=== PATIENT | female | born 1930 | race Caucasian/White ===

== ENCOUNTER 2017-07-12 17:44 | Emergency (ER) | payer MEDICARE, BC, MEDICAID ==
--- NOTE | 2017-07-12 18:05 | EDM.PDOC ---
ED HPI GENERAL MEDICAL PROBLEM - General Chief Complaint: Genitourinary Problem Stated Complaint: MEDICAL Time Seen by Provider: 07/12/17 18:01 Source of Information: Reports: Patient, EMS, EMS Notes Reviewed, Family, Assisted Records History Limitations: Reports: No Limitations - History of Present Illness INITIAL COMMENTS - FREE TEXT/NARRATIVE: Pt to ER via EMS from [facility] with continued UTI symptoms. Family reports UTI ongoing x about 2 weeks. Pt has no complaints today, just not feeling quite like herself. Denies pain or burning, denies confusion. No new meds. Admits to not drinking water well. Had last been on Cipro in May. No antibiotic noted since that time. Also notes rash in pannus. Reports that staff does not always put the powder on her. Onset: Gradual Duration: Recurring Location: Reports: Abdomen Severity: Mild Improves with: Reports: None Worsens with: Reports: None Associated Symptoms: Reports: Malaise - Related Data Allergies Allergy/AdvReac Type Severity Reaction Status Date / Time latex Allergy Other Verified 07/12/17 17:59 rosuvastatin [From Crestor] Allergy Other Verified 07/12/17 17:59 Home Meds: Home Meds Allopurinol [Zyloprim] 1 tab PO DAILY 06/29/17 [History] Bumetanide [Bumex] 1 tab PO DAILY 06/29/17 [History] Bumetanide [Bumex] 2 mg PO DAILY 06/29/17 [History] Ferrous Sulfate 1 tab PO DAILY 06/29/17 [History] Folic Acid 1 tab PO DAILY 06/29/17 [History] Hydroxychloroquine Sulfate [Plaquenil] 1 tab PO BID 06/29/17 [History] Insulin Aspart [Novolog Flexpen] 14 units SQ TID 06/29/17 [History] Insulin Detemir [Levemir] 34 unit SQ DAILY 06/29/17 [History] Levothyroxine 1 tab PO DAILY 06/29/17 [History] Methotrexate Sodium [Trexall] 1 tab PO WEEKLY 06/29/17 [History] Metoprolol Succinate [Toprol XL] 25 mg PO DAILY 06/29/17 [History] Sennosides/Docusate Sodium [Sennosides-Docusate Sodium] 1 tab PO DAILY 06/29/17 [History] predniSONE [Prednisone] 1 tab PO DAILY 06/29/17 [History] rOPINIRole HCl [Requip] 1 tab PO DAILY 06/29/17 [History] traMADol [Ultram] 1 tab PO BID 06/29/17 [History] Past Medical History Musculoskeletal History: Reports: Other (See Below) Other Musculoskeletal History: bilateral knee pain ED ROS GENERAL - Review of Systems Review Of Systems: See Below Constitutional: Reports: Malaise, Weakness HEENT: Reports: No Symptoms Respiratory: Reports: No Symptoms Cardiovascular: Reports: No Symptoms GI/Abdominal: Reports: No Symptoms : Reports: Frequency, Incontinence Musculoskeletal: Reports: No Symptoms Skin: Reports: Rash (under her folds) Neurological: Reports: No Symptoms Psychiatric: Reports: No Symptoms ED EXAM, RENAL/ - Physical Exam Exam: See Below Exam Limited By: No Limitations General Appearance: Alert, WD/WN, No Apparent Distress Nose: Normal Inspection, Normal Mucosa, No Blood Throat/Mouth: Normal Inspection, Normal Lips, Normal Teeth, Normal Gums, Normal Oropharynx, Normal Voice, No Airway Compromise Head: Atraumatic, Normocephalic Neck: Normal Inspection, Supple, Non-Tender, Full Range of Motion Respiratory/Chest: No Respiratory Distress, Lungs Clear, Normal Breath Sounds, No Accessory Muscle Use, Chest Non-Tender Cardiovascular: Normal Peripheral Pulses, Regular Rate, Rhythm, No Edema, No Gallop, No JVD, No Murmur, No Rub Extremities: Normal Inspection, Normal Range of Motion, Non-Tender, Normal Capillary Refill, No Pedal Edema Neurological: Alert, Oriented, CN II-XII Intact, Normal Cognition, Normal Gait, Normal Reflexes, No Motor/Sensory Deficits Course - Vital Signs Last Recorded V/S: Last Vital Signs Temp 97.3 F 07/12/17 18:00 Pulse 83 07/12/17 18:00 Resp 20 07/12/17 18:00 BP 180/87 H 07/12/17 18:00 Pulse Ox 100 07/12/17 18:00 - Orders/Labs/Meds Orders: Active Orders 24 hr Category Date Time Status CULTURE URINE [RM] Stat Lab 07/12/17 18:06 Received Labs: Laboratory Tests 07/12/17 07/12/17 07/12/17 Range/Units 18:01 18:21 18:21 WBC 12.3 H (4.5-11.0) K/uL RBC 3.06 L (3.30-5.50) M/uL Hgb 9.4 L (12.0-15.0) g/dL Hct 29.4 L (36.0-48.0) % MCV 96 (80-98) fL MCH 31 (27-31) pg MCHC 32 (32-36) % Plt Count 487 H (150-400) K/uL Neut % (Auto) 86 H (36-66) % Lymph % (Auto) 8 L (24-44) % [place] % (Auto) 4 (2-6) % Eos % (Auto) 2 (2-4) % Baso % (Auto) 0 (0-1) % Sodium 136 L (140-148) mmol/L Potassium 4.4 (3.6-5.2) mmol/L Chloride 99 L (100-108) mmol/L Carbon Dioxide 29 (21-32) mmol/L Anion Gap 12.4 (5.0-14.0) mmol/L BUN 46 H (7-18) mg/dL Creatinine 1.9 H (0.6-1.0) mg/dL Est Cr Clr Drug Dosing TNP Estimated GFR (MDRD) 25 L (>60) Glucose 84 (74-106) mg/dL Calcium 9.1 (8.5-10.1) mg/dL Urine Color Yellow Urine Appearance Cloudy Urine pH 6.0 (4.5-8.0) Ur Specific [place] 1.015 (1.008-1.030) Urine Protein Negative (NEGATIVE) mg/dL Urine Glucose (UA) Normal (NEGATIVE) mg/dL Urine Ketones Negative (NEGATIVE) mg/dL Urine Occult Blood Large (NEGATIVE) Urine Nitrite Negative (NEGATIVE) Urine Bilirubin Negative (NEGATIVE) Urine Urobilinogen Normal (NORMAL) mg/dL Ur Leukocyte Esterase Large (NEGATIVE) Urine RBC 10-20 H (0-5) Urine WBC Packed H (0-5) Ur Epithelial Cells Moderate Amorphous Sediment Not seen Urine Bacteria Many Urine Mucus Not seen Meds: Medications Discontinued Medications Generic Name Dose Route Start Last Admin Trade Name Freq PRN Reason Stop Dose Admin Ceftriaxone Sodium 1 gm 07/12/17 18:14 07/12/17 18:52 Rocephin IM 07/12/17 18:15 1 gm ONETIME ONE Administration Hydromorphone HCl 1 mg 07/12/17 18:46 07/12/17 18:53 Dilaudid IM 07/12/17 18:47 1 mg ONETIME ONE Administration Lidocaine HCl Confirm 07/12/17 18:39 07/12/17 18:53 Xylocaine-Mpf 1% Administered 07/12/17 18:40 5 ml Dose Administration 5 ml .ROUTE .STK-MED ONE Departure - Departure Time of Disposition: 18:47 Disposition: Home, Self-Care 01 Condition: Fair Clinical Impression: UTI, Urinary tract infectious disease - Discharge Information Instructions: Urinary Tract Infection, Adult, [id number] Referrals: Marquise Castro MD [Primary Care Provider] - Forms: ED Department Discharge Additional Instructions: UA positive for UTI. CBC with mildly elevated WBC's. Rocephin 1gm IM given. Dilaudid 1mg IM x2 given prior to discharge for comfort during transport. Encourage staff to apply antifungal powder to folds BID as ordered. Will have pt start Cephalexin 500mg po QID x 7 days tomorrow. Urine culture is pending. Encourage fluids. Pt to be transported back to the [facility] via [facility]. - My Orders Last 24 Hours: My Active Orders 07/12/17 18:06 CULTURE URINE [RM] Stat - Assessment/Plan Last 24 Hours: My Active Orders 07/12/17 18:06 CULTURE URINE [RM] Stat
[2017-07-12] MEDS ORDERED: cefTRIAXone 1 GM Vial IM ONE (18:14)
[2017-07-12 18:16] VITALS: BP 180/87
[2017-07-12] MEDS ORDERED: HYDROmorphone 1 MG/ML Syringe IM ONE ×2 (18:46→19:49)
== END 2017-07-12 20:06 | disposition home or self-care (01) ==
LOC: JP.ED 17:44
DX: N39.0 Urinary tract infection, site not specified (principal); Z91.040 Latex allergy status; Z79.899 Other long term (current) drug therapy; Z79.4 Long term (current) use of insulin
CPT/HCPCS: 36415; 80048; 81001; 85025; 87086; 96372; 99284; J0696; J1170

== ENCOUNTER 2017-09-24 12:04 | Inpatient (IN) | payer MEDICARE, BC, MEDICAID ==
[2017-09-24] MEDS ORDERED: Sodium Chloride 0.9% 10 ML Syringe FLUSH PRN ×2 (12:15→17:01)
--- NOTE | 2017-09-24 12:50 | EDM.PDOC ---
ED HPI GENERAL MEDICAL PROBLEM - General Chief Complaint: General Stated Complaint: WOUND Time Seen by Provider: 09/24/17 12:50 Source of Information: Reports: Patient History Limitations: Reports: No Limitations - History of Present Illness INITIAL COMMENTS - FREE TEXT/NARRATIVE: pt is more confused today than yesterday. She has been seen by Dr Marko Andersen and he ordered a Us Of her legs to look at the cirulatory status to determine level of ambutation. Today she has developed marked swelling of the left facial area and this is very tender and swollen. Onset: Other ( Swelling in left face for 2 days but much worse today. ) Duration: Hour(s):, Getting Worse Location: Reports: Face Associated Symptoms: Reports: Other (Pthas marked facial swelling of left side of face in the parotid gland area. ) - Related Data Allergies Allergy/AdvReac Type Severity Reaction Status Date / Time latex Allergy Other Verified 07/12/17 17:59 rosuvastatin [From Crestor] Allergy Other Verified 07/12/17 17:59 Home Meds: Home Meds Allopurinol [Zyloprim] 100 mg PO DAILY 06/29/17 [History] Bumetanide [Bumex] 1 mg PO DAILY 06/29/17 [History] Bumetanide [Bumex] 2 mg PO DAILY 06/29/17 [History] Ferrous Sulfate 1 tab PO DAILY 06/29/17 [History] Folic Acid 1 tab PO DAILY 06/29/17 [History] Hydroxychloroquine Sulfate [Plaquenil] 200 mg PO BID 06/29/17 [History] Insulin Aspart [Novolog Flexpen] 14 units SQ TID 06/29/17 [History] Insulin Detemir [Levemir] 15 unit SQ BID 06/29/17 [History] Levothyroxine 112 mcg PO DAILY 06/29/17 [History] Metoprolol Succinate [Toprol XL] 25 mg PO DAILY 06/29/17 [History] Sennosides/Docusate Sodium [Sennosides-Docusate Sodium] 1 tab PO DAILY 06/29/17 [History] predniSONE [Prednisone] 2.5 mg PO DAILY 06/29/17 [History] traMADol [Ultram] 1 tab PO BID 06/29/17 [History] Acetaminophen/oxyCODONE [Percocet 325-5 MG] 1 tab PO Q4H PRN 09/24/17 [History] Cephalexin [Keflex] 500 mg PO QID 09/24/17 [History] Escitalopram [Lexapro] 10 mg PO BEDTIME 09/24/17 [History] Lanolin/Mineral Oil [Eucerin Original Lotion] 1 appful TOP BID 09/24/17 [History ] Menthol/Zinc Oxide [Calmoseptine Ointment Packet] 1 applic TOP BID 09/24/17 [ History] Polyethylene Glycol 3350 [MiraLAX] 17 gm PO DAILY 09/24/17 [History] fentaNYL [Duragesic] 50 mcg TOP Q72H 09/24/17 [History] hydrOXYzine Pamoate [Vistaril] 25 mg PO TID 09/24/17 [History] rOPINIRole HCl [Requip] 0.5 mg PO BEDTIME 09/24/17 [History] Past Medical History Cardiovascular History: Reports: Heart Failure, Hypertension, PVD Genitourinary History: Reports: Renal Disease [employer] History: Reports: Musculoskeletal History: Reports: Other (See Below) Other Musculoskeletal History: bilateral knee pain Neurological History: Reports: Neuropathy, Diabetic Endocrine/Metabolic History: Reports: Diabetes, Type II Dermatologic History: Reports: Venous Stasis Dermatitis Social & Family History - Tobacco Use Smoking Status *Q: Never Smoker - Caffeine Use Caffeine Use: Reports: Coffee - Recreational Drug Use Recreational Drug Use: No ED ROS GENERAL - Review of Systems Review Of Systems: See Below Constitutional: Reports: No Symptoms, Decreased Appetite HEENT: Reports: Other ( facial swelling in the left parotid gland area. ) Respiratory: Reports: No Symptoms Cardiovascular: Reports: No Symptoms Endocrine: Reports: No Symptoms GI/Abdominal: Reports: No Symptoms : Reports: No Symptoms Musculoskeletal: Reports: No Symptoms Skin: Reports: No Symptoms Neurological: Reports: Confusion, Other (pt is normally confused but it is definitely worse today. ) ED EXAM, GENERAL - Physical Exam Exam: See Below Free Text/Narrative:: pt arrived with marked facial pain . She has swelling on the left side of the face. This appesrs to be a swollen left parotid with no stone visible. Exam Limited By: Altered Mental Status General Appearance: Alert, Lethargic, Mild Distress, Other (pupils are equal and reactive to lite. ) Ears: Normal TMs Nose: Normal Inspection Throat/Mouth: Other (pt has a firm swollen area on the left side of the face. This is very tender for her. ) Head: Facial Swelling Neck: Lymphadenopathy (L) Respiratory/Chest: No Respiratory Distress Cardiovascular: Regular Rate, Rhythm, Tachycardia, Systolic Murmur, Other ( christiana 2 systolic murmur) GI/Abdominal: Soft, Tender, Other ( Pt had diffuse tenderness in the lower abdoman. A cath was placed and she had over 2000 cc of urine in her bladder. ) (Female) Exam: Deferred Rectal (Female) Exam: Deferred Back Exam: Normal Inspection Extremities: Other ( Pt has marked ulceration of her legs. The tendons are visible on the rt. ) Neurological: Alert, Confused Psychiatric: Normal Affect Course - Vital Signs Last Recorded V/S: Last Vital Signs Temp 36.8 C 09/24/17 12:23 Pulse 68 09/24/17 12:23 Resp 16 09/24/17 12:23 BP 108/50 L 09/24/17 12:23 Pulse Ox 94 L 09/24/17 12:23 - Orders/Labs/Meds Orders: Active Orders 24 hr Category Date Time Status VL Duplex Lwr Ext Art Comp Bi [US] Stat Exams 09/24/17 12:39 Ordered CULTURE BLOOD [BC] Urgent Lab 09/24/17 13:20 Received CULTURE BLOOD [BC] Urgent Lab 09/24/17 13:25 Received Sodium Chloride 0.9% [Normal Saline] 1,000 ml Med 09/24/17 13:15 Active IV ASDIRECTED Sodium Chloride 0.9% [Saline Flush] Med 09/24/17 12:15 Active 10 ml FLUSH ASDIRECTED PRN Blood Culture x2 Reflex Set [OM.PC] Urgent Oth 09/24/17 13:00 Ordered Saline Lock Insert [OM.PC] Routine Oth 09/24/17 12:15 Ordered Medication Orders Sodium Chloride (Normal Saline) 1,000 mls @ 300 mls/hr IV ASDIRECTED MICHELLE Last Admin: 09/24/17 13:09 Dose: 300 mls/hr Sodium Chloride (Saline Flush) 10 ml FLUSH ASDIRECTED PRN PRN Reason: Keep Vein Open Last Admin: 09/24/17 13:09 Dose: 10 ml Labs: Laboratory Tests 09/24/17 09/24/17 09/24/17 Range/Units 12:29 12:29 12:59 WBC 23.7 H (4.5-11.0) K/uL RBC 3.17 L (3.30-5.50) M/uL Hgb 9.2 L (12.0-15.0) g/dL Hct 28.8 L (36.0-48.0) % MCV 91 (80-98) fL MCH 29 (27-31) pg MCHC 32 (32-36) % Plt Count 504 H (150-400) K/uL Add Manual Diff Yes Neutrophils % (Manual) 87 H (36-66) % Band Neutrophils % 6 (5-11) % Lymphocytes % (Manual) 4 L (24-44) % Monocytes % (Manual) 3 (2-6) % Polychromasia Sodium 136 L (140-148) mmol/L Potassium 4.8 (3.6-5.2) mmol/L Chloride 99 L (100-108) mmol/L Carbon Dioxide 30 (21-32) mmol/L Anion Gap 11.8 (5.0-14.0) mmol/L BUN 58 H (7-18) mg/dL Creatinine 2.7 H (0.6-1.0) mg/dL Est Cr Clr Drug Dosing 13.74 mL/min Estimated GFR (MDRD) 17 L (>60) Glucose 302 H (74-106) mg/dL Lactic Acid 1.9 (0.4-2.0) mmol/L Calcium 8.9 (8.5-10.1) mg/dL Total Bilirubin 0.3 (0.2-1.0) mg/dL AST 16 (15-37) U/L ALT 18 (12-78) U/L Alkaline Phosphatase 126 H D (46-116) U/L Total Protein 5.9 L (6.4-8.2) g/dL Albumin 1.7 L (3.4-5.0) g/dL Globulin 4.2 H (2.3-3.5) g/dL Albumin/Globulin Ratio 0.4 L (1.2-2.2) Urine Color Urine Appearance Urine pH (4.5-8.0) Ur Specific [place] (1.008-1.030) Urine Protein (NEGATIVE) mg/dL Urine Glucose (UA) (NEGATIVE) mg/dL Urine Ketones (NEGATIVE) mg/dL Urine Occult Blood (NEGATIVE) Urine Nitrite (NEGATIVE) Urine Bilirubin (NEGATIVE) Urine Urobilinogen (NORMAL) mg/dL Ur Leukocyte Esterase (NEGATIVE) Urine RBC (0-5) Urine WBC (0-5) Ur Epithelial Cells Amorphous Sediment Urine Bacteria Urine Mucus 09/24/17 Range/Units 13:50 WBC (4.5-11.0) K/uL RBC (3.30-5.50) M/uL Hgb (12.0-15.0) g/dL Hct (36.0-48.0) % MCV (80-98) fL MCH (27-31) pg MCHC (32-36) % Plt Count (150-400) K/uL Add Manual Diff Neutrophils % (Manual) (36-66) % Band Neutrophils % (5-11) % Lymphocytes % (Manual) (24-44) % Monocytes % (Manual) (2-6) % Polychromasia Sodium (140-148) mmol/L Potassium (3.6-5.2) mmol/L Chloride (100-108) mmol/L Carbon Dioxide (21-32) mmol/L Anion Gap (5.0-14.0) mmol/L BUN (7-18) mg/dL Creatinine (0.6-1.0) mg/dL Est Cr Clr Drug Dosing mL/min Estimated GFR (MDRD) (>60) Glucose (74-106) mg/dL Lactic Acid (0.4-2.0) mmol/L Calcium (8.5-10.1) mg/dL Total Bilirubin (0.2-1.0) mg/dL AST (15-37) U/L ALT (12-78) U/L Alkaline Phosphatase (46-116) U/L Total Protein (6.4-8.2) g/dL Albumin (3.4-5.0) g/dL Globulin (2.3-3.5) g/dL Albumin/Globulin Ratio (1.2-2.2) Urine Color Yellow Urine Appearance Slightly cloudy Urine pH 6.0 (4.5-8.0) Ur Specific [place] 1.010 (1.008-1.030) Urine Protein Negative (NEGATIVE) mg/dL Urine Glucose (UA) Normal (NEGATIVE) mg/dL Urine Ketones Negative (NEGATIVE) mg/dL Urine Occult Blood Negative (NEGATIVE) Urine Nitrite Negative (NEGATIVE) Urine Bilirubin Negative (NEGATIVE) Urine Urobilinogen Normal (NORMAL) mg/dL Ur Leukocyte Esterase Negative (NEGATIVE) Urine RBC Not seen (0-5) Urine WBC 0-5 (0-5) Ur Epithelial Cells Rare Amorphous Sediment Rare Urine Bacteria Rare Urine Mucus Not seen Meds: Medications Generic Name Dose Route Start Last Admin Trade Name Freq PRN Reason Stop Dose Admin Sodium Chloride 1,000 mls @ 300 mls/hr 09/24/17 13:15 09/24/17 13:09 Normal Saline IV 300 mls/hr ASDIRECTED MICHELLE Administration Sodium Chloride 10 ml 09/24/17 12:15 09/24/17 13:09 Saline Flush FLUSH 10 ml ASDIRECTED PRN Administration Keep Vein Open Discontinued Medications Generic Name Dose Route Start Last Admin Trade Name Freq PRN Reason Stop Dose Admin Hydromorphone HCl 0.5 mg 09/24/17 13:41 09/24/17 13:54 Dilaudid IVPUSH 09/24/17 13:42 0.5 mg ONETIME ONE Administration Ceftriaxone Sodium 1 gm/ 50 mls @ 100 mls/hr 09/24/17 13:39 09/24/17 13:59 Sodium Chloride IV 09/24/17 14:08 100 mls/hr ONETIME ONE Administration - Re-Assessments/Exams Free Text/Narrative Re-Assessment/Exam: 09/24/17 14:23 cat scan of the facial area was obtained which showed a swollen area of the left parotid gland. Us was obtained which showed a monophasic flow to the foot. 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 with ulceration of other part of foot - Discharge Information Referrals: Marquise Castro MD [Primary Care Provider] - Forms: ED Department Discharge Care Plan Goals: admit to Dr ford - My Orders Last 24 Hours: My Active Orders 09/24/17 12:15 Sodium Chloride 0.9% [Saline Flush] 10 ml FLUSH ASDIRECTED PRN Saline Lock Insert [OM.PC] Routine 09/24/17 12:39 VL Duplex Lwr Ext Art Comp Bi [US] Stat 09/24/17 13:00 Blood Culture x2 Reflex Set [OM.PC] Urgent 09/24/17 13:15 Sodium Chloride 0.9% [Normal Saline] 1,000 ml IV ASDIRECTED 09/24/17 13:20 CULTURE BLOOD [BC] Urgent 09/24/17 13:25 CULTURE BLOOD [BC] Urgent - Assessment/Plan Last 24 Hours: My Active Orders 09/24/17 12:15 Sodium Chloride 0.9% [Saline Flush] 10 ml FLUSH ASDIRECTED PRN Saline Lock Insert [OM.PC] Routine 09/24/17 12:39 VL Duplex Lwr Ext Art Comp Bi [US] Stat 09/24/17 13:00 Blood Culture x2 Reflex Set [OM.PC] Urgent 09/24/17 13:15 Sodium Chloride 0.9% [Normal Saline] 1,000 ml IV ASDIRECTED 09/24/17 13:20 CULTURE BLOOD [BC] Urgent 09/24/17 13:25 CULTURE BLOOD [BC] Urgent
[2017-09-24] MEDS ORDERED: Sodium Chloride 0.9% 1,000 ML IV SCH (13:15)
--- NOTE | 2017-09-24 13:30 | CT ---
CT maxillofacial. Total DLP 1338 Findings: Contrast was not administered. There is diffuse enlargement of the left parotid gland anson red to the right. It appears non mass-like. There is hazy fat stranding about it. No definitive radio paque stone within the left parotid duct. There are a few small lymph nodes within the left parotid g land and about the left parotid gland. Right parotid gland within normal limits. Subcutaneous edema p osteriorly about the left neck as well. Chronic left maxillary sinus thickening. Patchy opacity withi n the left maxillary sinus which may indicate mucous retention cyst or polyp. It is indeterminate. Impression: 1. Diffuse enlargement of the left parotid gland with hazy fat stranding about it and subcutaneous ed pa[place]. Findings most suggestive of parotiditis. If symptoms persist consider repeat CT or MRI follow-up . Findings discussed with Dr. Reyes.
[2017-09-24] MEDS ORDERED: cefTRIAXone 1 GM in Sodium Chloride 0.9% 50 ML IV ONE (13:39)
[2017-09-24] MEDS ORDERED: HYDROmorphone 0.5 MG/0.5 ML Syringe IVPUSH ONE ×2 (13:41→15:28)
--- NOTE | 2017-09-24 15:01 | US ---
Bilateral lower extremity arterial study. Right: Triphasic waveform within the right common femoral artery. Right superficial femoral artery de monstrates elevated velocity to 198 cm/s. Remainder of the right superficial femoral artery demonstra aneesh triphasic waveform. There is monophasic waveform throughout the remainder of the right leg includ ing the right popliteal artery. Right peroneal artery demonstrates elevated velocity to 120 cm per se cond. Right dorsal pedal artery is patent with velocity 56 and measures per second. Left: Triphasic waveform within the left common femoral artery. Proximal left superficial femoral art renetta demonstrates increased velocity 222 cm/s. Distal to the proximal left superficial femoral artery there is monophasic flow throughout the left lower extremity. Left distal popliteal artery demonstrat es flow 167 cm/s. There is flow into the left dorsal pedal artery. Impression: 1. Elevated velocities within the proximal femoral superficial femoral arteries can indicate stenoses . Additional elevated velocity within the right peroneal artery and left distal popliteal artery may indicate stenoses. 3. Monophasic waveform within the legs can imply arterial disease as well.
[2017-09-24] MEDS ORDERED: Ondansetron 4 MG/2 ML SDV IVPUSH ONE (15:27)
[2017-09-24] MEDS ORDERED: Silver Sulfadiazine 1% Crm 50 GM Tube TOP ONE (16:16)
[2017-09-24] MEDS ORDERED: Ondansetron 4 MG/2 ML SDV IV PRN (17:01)
[2017-09-24] MEDS ORDERED: Magnesium Hydroxide 400 MG/5 ML Susp 30 ML Cup PO PRN (17:01)
[2017-09-24] MEDS ORDERED: Acetaminophen 325 MG Tab PO PRN (17:01)
[2017-09-24] MEDS ORDERED: Glucose Gel 15 GM in 37.5 GM Tube PO PRN (17:01)
[2017-09-24] MEDS ORDERED: 50% Dextrose in Water 50 ML Syringe IV PRN (17:01)
[2017-09-24] MEDS: Lactated Ringers 1,000 ML IV SCH (17:24)
[2017-09-24] MEDS: Insulin Aspart 100 Units/ML 3 ML Pen SUBCUT SCH ×2 (18:09→20:48)
--- NOTE | 2017-09-24 19:27 | PCM.HP ---
H&P History of Present Illness - General Date of Service: 09/24/17 Admit Problem/Dx: Admission Diagnosis/Problem Admission Diagnosis/Problem Parotitis Source of Information: Patient, Family, Provider, RN Notes Reviewed History Limitations: Reports: Altered Mental Status (Decreased level of consciousness and confusion) - History of Present Illness Initial Comments - Free Text/Narative: Ms. Mathews is an 87-year-old woman who is admitted through the emergency department for management of perotitis and venous stasis ulcers with underlying peripheral arterial disease. She has had ongoing difficulty with venous stasis ulcers which have been managed through the wound clinic. Apparently up until a week or 2 ago there had been good improvement in these lesions, but now over the past several days there's been significant deterioration and worsening of ulcers with evidence of underlying ischemic disease. There is an open area on the lower anterior aspect of the right leg as well as evidence of necrotic tissue on the toes of the right and several large superficial ulcers. She been seen and evaluated by Dr. Andersen yesterday with the plan to proceed with arterial Doppler studies for further evaluation of arterial supply. Over the past 24 hours has developed significant swelling and pain in the left face. She was brought into the emergency department today for further evaluation, CT scan shows inflammation of the parotid gland with no evidence of stone or abscess. She is very lethargic and has not been eating much of anything over the past 3 weeks. White blood cell count is elevated and she's had documented temperature elevation as well. Because of her lethargy and confusion she is not able to provide much in the way of history concerning recent symptoms or events. - Related Data Allergies/Adverse Reactions: Allergies Allergy/AdvReac Type Severity Reaction Status Date / Time latex Allergy Other Verified 07/12/17 17:59 rosuvastatin [From Crestor] Allergy Other Verified 07/12/17 17:59 Home Medications: Home Meds Allopurinol [Zyloprim] 100 mg PO DAILY 06/29/17 [History] Bumetanide [Bumex] 1 mg PO DAILY 06/29/17 [History] Bumetanide [Bumex] 2 mg PO DAILY 06/29/17 [History] Ferrous Sulfate 1 tab PO DAILY 06/29/17 [History] Folic Acid 1 tab PO DAILY 06/29/17 [History] Hydroxychloroquine Sulfate [Plaquenil] 200 mg PO BID 06/29/17 [History] Insulin Aspart [Novolog Flexpen] 14 units SQ TID 06/29/17 [History] Insulin Detemir [Levemir] 15 unit SQ BID 06/29/17 [History] Levothyroxine 112 mcg PO DAILY 06/29/17 [History] Metoprolol Succinate [Toprol XL] 25 mg PO DAILY 06/29/17 [History] Sennosides/Docusate Sodium [Sennosides-Docusate Sodium] 1 tab PO DAILY 06/29/17 [History] predniSONE [Prednisone] 2.5 mg PO DAILY 06/29/17 [History] traMADol [Ultram] 1 tab PO BID 06/29/17 [History] Acetaminophen/oxyCODONE [Percocet 325-5 MG] 1 tab PO Q4H PRN 09/24/17 [History] Cephalexin [Keflex] 500 mg PO QID 09/24/17 [History] Escitalopram [Lexapro] 10 mg PO BEDTIME 09/24/17 [History] Lanolin/Mineral Oil [Eucerin Original Lotion] 1 appful TOP BID 09/24/17 [History ] Menthol/Zinc Oxide [Calmoseptine Ointment Packet] 1 applic TOP BID 09/24/17 [ History] Polyethylene Glycol 3350 [MiraLAX] 17 gm PO DAILY 09/24/17 [History] fentaNYL [Duragesic] 50 mcg TOP Q72H 09/24/17 [History] hydrOXYzine Pamoate [Vistaril] 25 mg PO TID 09/24/17 [History] rOPINIRole HCl [Requip] 0.5 mg PO BEDTIME 09/24/17 [History] Past Medical History Cardiovascular History: Reports: Heart Failure, Hypertension, PVD Genitourinary History: Reports: Renal Disease [employer]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: Musculoskeletal History: Reports: Other (See Below) Other Musculoskeletal History: bilateral knee pain Neurological History: Reports: Neuropathy, Diabetic Endocrine/Metabolic History: Reports: Diabetes, Type II Dermatologic History: Reports: Venous Stasis Dermatitis Social & Family History - Tobacco Use Smoking Status *Q: Unknown Ever Smoked Second Hand Smoke Exposure: No - Caffeine Use Caffeine Use: Reports: None - Recreational Drug Use Recreational Drug Use: No H&P Review of Systems - Review of Systems: Review Of Systems: Unable To Obtain General: Reports: ROS unobtainable (Lethargy and confusion) Exam - Exam Exam: See Below - Vital Signs Vital Signs: Last Vital Signs Temp 96.3 F 09/24/17 17:01 Pulse 64 09/24/17 17:01 Resp 20 09/24/17 17:01 BP 112/44 L 09/24/17 17:54 Pulse Ox 92 L 09/24/17 17:01 Weight: 231 lb 5 oz - Exam Quality Assessment: DVT Prophylaxis General: Lethargic HEENT: Conjunctiva Clear, Pupils Equal, Other (Marked swelling and tenderness of the left face). No: Mucosa Moist & [place] Neck: Supple, Trachea Midline, +2 Carotid Pulse wo Bruit Lungs: Clear to Auscultation, Normal Respiratory Effort Cardiovascular: Regular Rate, Regular Rhythm, Normal S1, Normal S2, Systolic Murmur. No: Irregular Rhythm, Bradycardia, Tachycardia GI/Abdominal Exam: Normal Bowel Sounds, Soft, Non-Tender, No Organomegaly, No Distention Extremities: Other (Venous stasis ulcerations of both lower extremities, no evidence of cellulitis at the present time) - Patient Data Result Diagrams: 09/24/17 12:29 09/24/17 12:29 *Q Meaningful Use (ADM) - VTE *Q VTE Criteria *Q: - VTE Risk Assess *Q Each Risk Factor Represents 1 Point: Swollen Legs, Current, Obesity ( BMI > 25 kg/m2) Total Score 1 Point Risk Factors: 2 Each Risk Factor Represents 2 Points: Patient confined to bed greater than 72 hours Total Score 2 Point Risk Factors: 2 Each Risk Factor Represents 3 Points: Age 75 Years or Greater Total Score 3 Point Risk Factors: 3 Each Risk Factor Represents 5 Points: None Total Score 5 Point Risk Factors: 0 Venous Thromboembolism Risk Factor Score *Q: 7 - Stroke *Q Stroke Criteria *Q: - AMI *Q AMI Criteria *Q: Problem List Initiated/Reviewed/Updated: Yes Orders Last 24hrs: Active Orders 24 hr Category Date Time Status Patient Status [ADT] Routine ADT 09/24/17 17:01 Active Ambulate [RC] QID Care 09/24/17 17:01 Active Blood Glucose Check, Bedside [RC] QIDACANDBED Care 09/24/17 17:01 Active Communication Order [RC] STAT Care 09/24/17 17:01 Active Diabetes Education [RC] Click to Edit Care 09/24/17 17:01 Active Height and Weight [RC] DAILY Care 09/24/17 17:01 Active Intake and Output [RC] QSHIFT Care 09/24/17 17:01 Active Notify Provider Consults [RC] ASDIRECTED Care 09/24/17 17:01 Active Notify Provider Vital Signs [RC] ASDIRECTED Care 09/24/17 17:01 Active Notify Provider [RC] PRN Care 09/24/17 17:01 Active Oxygen Therapy [RC] PRN Care 09/24/17 17:01 Active Peripheral IV Care [RC] . DIRECTED Care 09/24/17 17:01 Active Up With Assistance [RC] ASDIRECTED Care 09/24/17 17:01 Active Up to Chair [RC] QID Care 09/24/17 17:01 Active VTE/DVT Education [RC] Per Unit Routine Care 09/24/17 17:01 Active Vital Signs [RC] Q4H Care 09/24/17 17:01 Active Consult to Physician [CONS] Routine Cons 09/24/17 17:01 Ordered 2 Gram Sodium Diet [DIET] Diet 09/24/17 Dinner Active Consistent Carbohydrate Diet [DIET] Diet 09/24/17 Dinner Active BASIC METABOLIC PANEL,BMP [CHEM] AM Lab 09/25/17 05:11 Ordered CBC WITH AUTO DIFF [HEME] AM Lab 09/25/17 05:11 Ordered GLUCOSE POC LAB TO COLLECT [POC] QIDACANDBED Lab 09/24/17 21:00 Ordered GLUCOSE POC LAB TO COLLECT [POC] QIDACANDBED Lab 09/25/17 07:30 Ordered GLUCOSE POC LAB TO COLLECT [POC] QIDACANDBED Lab 09/25/17 11:30 Ordered GLUCOSE POC LAB TO COLLECT [POC] QIDACANDBED Lab 09/25/17 16:30 Ordered GLUCOSE POC LAB TO COLLECT [POC] QIDACANDBED Lab 09/25/17 21:00 Ordered GLUCOSE POC LAB TO COLLECT [POC] QIDACANDBED Lab 09/26/17 07:30 Ordered GLUCOSE POC LAB TO COLLECT [POC] QIDACANDBED Lab 09/26/17 11:30 Ordered GLUCOSE POC LAB TO COLLECT [POC] QIDACANDBED Lab 09/26/17 16:30 Ordered GLUCOSE POC LAB TO COLLECT [POC] QIDACANDBED Lab 09/26/17 21:00 Ordered GLUCOSE POC LAB TO COLLECT [POC] QIDACANDBED Lab 09/27/17 07:30 Ordered GLUCOSE POC LAB TO COLLECT [POC] QIDACANDBED Lab 09/27/17 11:30 Ordered GLUCOSE POC LAB TO COLLECT [POC] QIDACANDBED Lab 09/27/17 16:30 Ordered GLUCOSE POC LAB TO COLLECT [POC] QIDACANDBED Lab 09/27/17 21:00 Ordered GLUCOSE POC LAB TO COLLECT [POC] QIDACANDBED Lab 09/28/17 07:30 Ordered GLUCOSE POC LAB TO COLLECT [POC] QIDACANDBED Lab 09/28/17 11:30 Ordered GLUCOSE POC LAB TO COLLECT [POC] QIDACANDBED Lab 09/28/17 16:30 Ordered GLUCOSE POC LAB TO COLLECT [POC] QIDACANDBED Lab 09/28/17 21:00 Ordered GLUCOSE POC LAB TO COLLECT [POC] QIDACANDBED Lab 09/29/17 07:30 Ordered GLUCOSE POC LAB TO COLLECT [POC] QIDACANDBED Lab 09/29/17 11:30 Ordered GLUCOSE POC LAB TO COLLECT [POC] QIDACANDBED Lab 09/29/17 16:30 Ordered GLUCOSE POC LAB TO COLLECT [POC] QIDACANDBED Lab 09/29/17 21:00 Ordered GLUCOSE POC LAB TO COLLECT [POC] QIDACANDBED Lab 09/30/17 07:30 Ordered GLUCOSE POC LAB TO COLLECT [POC] QIDACANDBED Lab 09/30/17 11:30 Ordered GLUCOSE POC LAB TO COLLECT [POC] QIDACANDBED Lab 09/30/17 16:30 Ordered GLUCOSE POC LAB TO COLLECT [POC] QIDACANDBED Lab 09/30/17 21:00 Ordered GLUCOSE POC LAB TO COLLECT [POC] QIDACANDBED Lab 10/01/17 07:30 Ordered GLUCOSE POC LAB TO COLLECT [POC] QIDACANDBED Lab 10/01/17 11:30 Ordered GLUCOSE POC LAB TO COLLECT [POC] QIDACANDBED Lab 10/01/17 16:30 Ordered GLUCOSE POC LAB TO COLLECT [POC] QIDACANDBED Lab 10/01/17 21:00 Ordered GLUCOSE POC LAB TO COLLECT [POC] QIDACANDBED Lab 10/02/17 07:30 Ordered GLUCOSE POC LAB TO COLLECT [POC] QIDACANDBED Lab 10/02/17 11:30 Ordered GLUCOSE POC LAB TO COLLECT [POC] QIDACANDBED Lab 10/02/17 16:30 Ordered GLUCOSE POC LAB TO COLLECT [POC] QIDACANDBED Lab 10/02/17 21:00 Ordered GLUCOSE POC LAB TO COLLECT [POC] QIDACANDBED Lab 10/03/17 07:30 Ordered GLUCOSE POC LAB TO COLLECT [POC] QIDACANDBED Lab 10/03/17 11:30 Ordered GLUCOSE POC LAB TO COLLECT [POC] QIDACANDBED Lab 10/03/17 16:30 Ordered GLUCOSE POC LAB TO COLLECT [POC] QIDACANDBED Lab 10/03/17 21:00 Ordered GLUCOSE POC LAB TO COLLECT [POC] QIDACANDBED Lab 10/04/17 07:30 Ordered GLUCOSE POC LAB TO COLLECT [POC] QIDACANDBED Lab 10/04/17 11:30 Ordered GLUCOSE POC LAB TO COLLECT [POC] QIDACANDBED Lab 10/04/17 16:30 Ordered GLUCOSE POC LAB TO COLLECT [POC] QIDACANDBED Lab 10/04/17 21:00 Ordered GLUCOSE POC LAB TO COLLECT [POC] QIDACANDBED Lab 10/05/17 07:30 Ordered GLUCOSE POC LAB TO COLLECT [POC] QIDACANDBED Lab 10/05/17 11:30 Ordered GLUCOSE POC LAB TO COLLECT [POC] QIDACANDBED Lab 10/05/17 16:30 Ordered GLUCOSE POC LAB TO COLLECT [POC] QIDACANDBED Lab 10/05/17 21:00 Ordered GLUCOSE POC LAB TO COLLECT [POC] QIDACANDBED Lab 10/06/17 07:30 Ordered GLUCOSE POC LAB TO COLLECT [POC] QIDACANDBED Lab 10/06/17 11:30 Ordered GLUCOSE POC LAB TO COLLECT [POC] QIDACANDBED Lab 10/06/17 16:30 Ordered GLUCOSE POC LAB TO COLLECT [POC] QIDACANDBED Lab 10/06/17 21:00 Ordered GLUCOSE POC LAB TO COLLECT [POC] QIDACANDBED Lab 10/07/17 07:30 Ordered GLUCOSE POC LAB TO COLLECT [POC] QIDACANDBED Lab 10/07/17 11:30 Ordered GLUCOSE POC LAB TO COLLECT [POC] QIDACANDBED Lab 10/07/17 16:30 Ordered GLUCOSE POC LAB TO COLLECT [POC] QIDACANDBED Lab 10/07/17 21:00 Ordered GLUCOSE POC LAB TO COLLECT [POC] QIDACANDBED Lab 10/08/17 07:30 Ordered GLUCOSE POC LAB TO COLLECT [POC] QIDACANDBED Lab 10/08/17 11:30 Ordered GLUCOSE POC LAB TO COLLECT [POC] QIDACANDBED Lab 10/08/17 16:30 Ordered GLUCOSE POC LAB TO COLLECT [POC] QIDACANDBED Lab 10/08/17 21:00 Ordered GLUCOSE POC LAB TO COLLECT [POC] QIDACANDBED Lab 10/09/17 07:30 Ordered GLUCOSE POC LAB TO COLLECT [POC] QIDACANDBED Lab 10/09/17 11:30 Ordered GLUCOSE POC LAB TO COLLECT [POC] QIDACANDBED Lab 10/09/17 16:30 Ordered GLUCOSE POC LAB TO COLLECT [POC] QIDACANDBED Lab 10/09/17 21:00 Ordered GLUCOSE POC LAB TO COLLECT [POC] QIDACANDBED Lab 10/10/17 07:30 Ordered GLUCOSE POC LAB TO COLLECT [POC] QIDACANDBED Lab 10/10/17 11:30 Ordered GLUCOSE POC LAB TO COLLECT [POC] QIDACANDBED Lab 10/10/17 16:30 Ordered GLUCOSE POC LAB TO COLLECT [POC] QIDACANDBED Lab 10/10/17 21:00 Ordered GLUCOSE POC LAB TO COLLECT [POC] QIDACANDBED Lab 10/11/17 07:30 Ordered GLUCOSE POC LAB TO COLLECT [POC] QIDACANDBED Lab 10/11/17 11:30 Ordered GLUCOSE POC LAB TO COLLECT [POC] QIDACANDBED Lab 10/11/17 16:30 Ordered GLUCOSE POC LAB TO COLLECT [POC] QIDACANDBED Lab 10/11/17 21:00 Ordered GLUCOSE POC LAB TO COLLECT [POC] QIDACANDBED Lab 10/12/17 07:30 Ordered GLUCOSE POC LAB TO COLLECT [POC] QIDACANDBED Lab 10/12/17 11:30 Ordered GLUCOSE POC LAB TO COLLECT [POC] QIDACANDBED Lab 10/12/17 16:30 Ordered GLUCOSE POC LAB TO COLLECT [POC] QIDACANDBED Lab 10/12/17 21:00 Ordered GLUCOSE POC LAB TO COLLECT [POC] QIDACANDBED Lab 10/13/17 07:30 Ordered GLUCOSE POC LAB TO COLLECT [POC] QIDACANDBED Lab 10/13/17 11:30 Ordered GLUCOSE POC LAB TO COLLECT [POC] QIDACANDBED Lab 10/13/17 16:30 Ordered GLUCOSE POC LAB TO COLLECT [POC] QIDACANDBED Lab 10/13/17 21:00 Ordered GLUCOSE POC LAB TO COLLECT [POC] QIDACANDBED Lab 10/14/17 07:30 Ordered GLUCOSE POC LAB TO COLLECT [POC] QIDACANDBED Lab 10/14/17 11:30 Ordered GLUCOSE POC LAB TO COLLECT [POC] QIDACANDBED Lab 10/14/17 16:30 Ordered GLUCOSE POC LAB TO COLLECT [POC] QIDACANDBED Lab 10/14/17 21:00 Ordered GLUCOSE POC LAB TO COLLECT [POC] QIDACANDBED Lab 10/15/17 07:30 Ordered GLUCOSE POC LAB TO COLLECT [POC] QIDACANDBED Lab 10/15/17 11:30 Ordered GLUCOSE POC LAB TO COLLECT [POC] QIDACANDBED Lab 10/15/17 16:30 Ordered GLUCOSE POC LAB TO COLLECT [POC] QIDACANDBED Lab 10/15/17 21:00 Ordered GLUCOSE POC LAB TO COLLECT [POC] QIDACANDBED Lab 10/16/17 07:30 Ordered GLUCOSE POC LAB TO COLLECT [POC] QIDACANDBED Lab 10/16/17 11:30 Ordered GLUCOSE POC LAB TO COLLECT [POC] QIDACANDBED Lab 10/16/17 16:30 Ordered GLUCOSE POC LAB TO COLLECT [POC] QIDACANDBED Lab 10/16/17 21:00 Ordered GLUCOSE POC LAB TO COLLECT [POC] QIDACANDBED Lab 10/17/17 07:30 Ordered GLUCOSE POC LAB TO COLLECT [POC] QIDACANDBED Lab 10/17/17 11:30 Ordered GLUCOSE POC LAB TO COLLECT [POC] QIDACANDBED Lab 10/17/17 16:30 Ordered GLUCOSE POC LAB TO COLLECT [POC] QIDACANDBED Lab 10/17/17 21:00 Ordered GLUCOSE POC LAB TO COLLECT [POC] QIDACANDBED Lab 10/18/17 07:30 Ordered GLUCOSE POC LAB TO COLLECT [POC] QIDACANDBED Lab 10/18/17 11:30 Ordered GLUCOSE POC LAB TO COLLECT [POC] QIDACANDBED Lab 10/18/17 16:30 Ordered GLUCOSE POC LAB TO COLLECT [POC] QIDACANDBED Lab 10/18/17 21:00 Ordered GLUCOSE POC LAB TO COLLECT [POC] QIDACANDBED Lab 10/19/17 07:30 Ordered GLUCOSE POC LAB TO COLLECT [POC] QIDACANDBED Lab 10/19/17 11:30 Ordered MAGNESIUM [CHEM] AM Lab 09/25/17 05:11 Ordered Acetaminophen [Tylenol] Med 09/24/17 17:01 Active 650 mg PO Q4H PRN Acetaminophen/oxyCODONE [Percocet 325-5 MG] Med 09/24/17 17:01 Active 1 tab PO Q4H PRN Allopurinol [Zyloprim] Med 09/25/17 09:00 Active 100 mg PO DAILY Clindamycin Phosphate [Cleocin] 600 mg Med 09/24/17 18:00 Active Sodium Chloride 0.9% [Normal Saline] 50 ml IV Q6H Dextrose 50% in Water Med 09/24/17 17:01 Active 50 ml IV ONETIME PRN Dextrose [Glutose 15] Med 09/24/17 17:01 Active 15 gm PO ONETIME PRN Docusate Sodium/Sennosides [Senna Plus] Med 09/25/17 09:00 Active 1 tab PO DAILY Enoxaparin [Lovenox] Med 09/24/17 21:00 Active 30 mg SUBCUT Q24H Escitalopram [Lexapro] Med 09/24/17 21:00 Active 10 mg PO BEDTIME Ferrous Sulfate Med 09/25/17 09:00 Active 325 mg PO DAILY Folic Acid Med 09/25/17 09:00 Active 1 mg PO DAILY Insulin Aspart [NovoLOG] Med 09/24/17 17:01 Active See Protocol SUBCUT QIDACANDBED Insulin Detemir [Levemir] Med 09/24/17 21:00 Active 15 unit SUBCUT BID Lactated Ringers [Ringers, Lactated] 1,000 ml Med 09/24/17 17:01 Active IV ASDIRECTED Levothyroxine Med 09/25/17 07:30 Active 112 mcg PO DAILY@0730 Magnesium Hydroxide [Milk of Magnesia] Med 09/24/17 17:01 Active 30 ml PO Q12H PRN Metoprolol Succinate [Toprol XL] Med 09/25/17 09:00 Active 25 mg PO DAILY Ondansetron [Zofran] Med 09/24/17 17:01 Active 4 mg IV Q4H PRN Polyethylene Glycol 3350 [MiraLAX] Med 09/25/17 09:00 Active 17 gm PO DAILY Sodium Chloride 0.9% [Saline Flush] Med 09/24/17 17:01 Active 10 ml FLUSH ASDIRECTED PRN Zinc Oxide Med 09/24/17 21:00 Active 0 gm TOP BID ceFAZolin [Ancef] 1 gm Med 09/24/17 22:00 Active Premix Bag 1 bag IV Q12H fentaNYL [Duragesic] Med 09/24/17 17:01 Pending 50 mcg TOP Q72H hydrOXYzine HCl [Atarax] Med 09/24/17 21:00 Active 25 mg PO TID predniSONE Med 09/25/17 08:00 Active 2.5 mg PO DAILY@0800 rOPINIRole [Requip] Med 09/24/17 21:00 Active 0.5 mg PO BEDTIME Peripheral IV Insertion Adult [OM.PC] Routine Oth 09/24/17 17:01 Ordered Resuscitation Status Routine Resus Stat 09/24/17 16:35 Ordered Medication Orders Acetaminophen (Tylenol) 650 mg PO Q4H PRN PRN Reason: Pain (Mild 1-3)/fever Allopurinol (Zyloprim) 100 mg PO DAILY ON LICENSE OF [facility] Dextrose (Glutose 15) 15 gm PO ONETIME PRN PRN Reason: Hypoglycemia Dextrose/Water (Dextrose 50% In Water) 50 ml IV ONETIME PRN PRN Reason: Hypoglycemia Enoxaparin Sodium (Lovenox) 30 mg SUBCUT Q24H ON LICENSE OF [facility] Escitalopram Oxalate (Lexapro) 10 mg PO BEDTIME ON LICENSE OF [facility] Fentanyl (Duragesic) 50 mcg TOP Q72H ON LICENSE OF [facility] Ferrous Sulfate (Ferrous Sulfate) 325 mg PO DAILY ON LICENSE OF [facility] Folic Acid (Folic Acid) 1 mg PO DAILY ON LICENSE OF [facility] Hydroxyzine HCl (Atarax) 25 mg PO TID ON LICENSE OF [facility] Clindamycin Phosphate 600 mg/ (Sodium Chloride) 54 mls @ 100 mls/hr IV Q6H ON LICENSE OF [facility] Last Admin: 09/24/17 17:51 Dose: 100 mls/hr Lactated Ringer's (Ringers, Lactated) 1,000 mls @ 125 mls/hr IV ASDIRECTED ON LICENSE OF [facility] Last Admin: 09/24/17 17:24 Dose: 125 mls/hr Cefazolin Sodium/Dextrose 1 gm (/ Premix) 50 mls @ 100 mls/hr IV Q12H ON LICENSE OF [facility] Insulin Aspart (Novolog) 0 unit SUBCUT QIDACANDBED ON LICENSE OF [facility] PRN Reason: Protocol Last Admin: 09/24/17 18:09 Dose: 8 units Insulin Detemir (Levemir) 15 unit SUBCUT BID ON LICENSE OF [facility] Levothyroxine Sodium (Levothyroxine) 112 mcg PO DAILY@0730 ON LICENSE OF [facility] Magnesium Hydroxide (Milk Of Magnesia) 30 ml PO Q12H PRN PRN Reason: Constipation Metoprolol Succinate (Toprol Xl) 25 mg PO DAILY ON LICENSE OF [facility] Multi-Ingred Cream/Lotion/Oil/Oint (Zinc Oxide) 0 gm TOP BID ON LICENSE OF [facility] Ondansetron HCl (Zofran) 4 mg IV Q4H PRN PRN Reason: Nausea/Vomiting Oxycodone/Acetaminophen (Percocet 325-5 Mg) 1 tab PO Q4H PRN PRN Reason: Pain Polyethylene Glycol (Miralax) 17 gm PO DAILY ON LICENSE OF [facility] Prednisone (Prednisone) 2.5 mg PO DAILY@0800 ON LICENSE OF [facility] Ropinirole HCl (Requip) 0.5 mg PO BEDTIME ON LICENSE OF [facility] Senna/Docusate Sodium (Senna Plus) 1 tab PO DAILY ON LICENSE OF [facility] Sodium Chloride (Saline Flush) 10 ml FLUSH ASDIRECTED PRN PRN Reason: Keep Vein Open Assessment/Plan Comment:: ASSESSMENT AND PLAN PAROTIDITIS-abrupt onset over the past 24 hours associated with fever and elevation in white blood cell count. No evidence of sepsis at the present time. CT scan showed no evidence of stone or abscess formation -IV fluids for hydration -Blood cultures pending -IV cefazolin and clindamycin BILATERAL VENOUS STASIS ULCERS-underlying peripheral arterial disease. Right leg seems to be much more severe than the left, arterial Doppler studies show poor flow into both lower extremities. No evidence of significant cellulitis at the present time. -Surgical review by Dr. Andersen in a.m. ACUTE KIDNEY INJURY-underlying chronic kidney disease stage III. Acute injury likely secondary to dehydration with intravascular volume depletion. -IV fluids for hydration -Closely monitor urine output and renal function TYPE 2 DIABETES MELLITUS -4 times a day glucometers -Hold scheduled NovoLog insulin -Continue usual dose of long-acting insulin -Moderate dose sliding scale NovoLog MAINTENANCE ISSUES -DVT prophylaxis; Lovenox 30 mg subcutaneous daily -GI prophylaxis; not indicated -Blanco catheter; not indicated -Nutrition; 2 g sodium diabetic diet -Nicotine dependence; not required CODE STATUS-FULL CODE ADMISSION STATUS-patient will be admitted to inpatient status, expect at least a 2 night hospital stay for evaluation and management of problems as outlined above. At the time of this admission I do not reasonably expected evaluation and management of this problem will require more than a 96 hour hospital stay. DISPOSITION-anticipate discharge to home after the hospital stay. PRIMARY CARE PROVIDER-Dr. Castro
[2017-09-24] MEDS: rOPINIRole 0.5 MG Tab PO SCH (20:47)
[2017-09-24] MEDS: Escitalopram 10 MG Tab PO SCH (20:47)
[2017-09-24] MEDS: hydrOXYzine HCl 25 MG Tab PO SCH (20:47)
[2017-09-24] MEDS ORDERED: Insulin Aspart 100 Units/ML 3 ML Pen SUBCUT SCH (21:00)
[2017-09-24] MEDS ORDERED: Enoxaparin 30 MG/0.3 ML Syringe SUBCUT SCH (21:00)
[2017-09-24] MEDS: Zinc Oxide 20% Oint 56.7 GM Tube TOP SCH (21:00)
[2017-09-24] MEDS ORDERED: Insulin Detemir 100 Units/ML 3 ML Pen SUBCUT SCH (21:00)
[2017-09-24] MEDS: Acetaminophen/oxyCODONE 325-5 MG Tab PO PRN (21:02)
[2017-09-24] MEDS: ceFAZolin 1 GM in Premix Bag 1 BAG IV SCH (21:07)
[2017-09-24] MEDS ORDERED: ceFAZolin 1 GM in Premix Bag 1 BAG IV SCH (22:00)
[2017-09-25] MEDS: Lactated Ringers 1,000 ML IV SCH (03:01)
[2017-09-25] MEDS ORDERED: Sodium Chloride 0.9% 500 ML IV ONE (07:49)
[2017-09-25] MEDS ORDERED: Bumetanide 1 MG Tab PO SCH ×3 (08:00→14:00)
[2017-09-25] MEDS: Insulin Aspart 100 Units/ML 3 ML Pen SUBCUT SCH ×4 (08:25→21:00)
[2017-09-25] MEDS ORDERED: 50% Dextrose in Water 50 ML Syringe IVPUSH ONE (08:30)
[2017-09-25] MEDS: Acetaminophen/oxyCODONE 325-5 MG Tab PO PRN ×2 (08:33→12:12)
--- NOTE | 2017-09-25 08:34 | PN ---
DATE OF SERVICE: 09/25/2017 SUBJECTIVE: Riya was admitted yesterday for peritonitis and venous stasis ulcers in her lower extremities with underlying peripheral artery disease. Reports were reviewed by Earnest Andersen MD. During report, she has been resting comfortably, sleeps most of the time. Oral intake was 360. Urine output was 700. OBJECTIVE: GENERAL: Riya Hernandez is an 87-year-old female. VITAL SIGNS: TPR is 97.5, 65, 18, blood pressure is 70/52. HEART: Regular rate and rhythm. LUNGS: Clear. EXTREMITIES: Legs are completely wrapped up. Dressings are dry. ASSESSMENT: Venous stasis ulcers with bilateral peripheral arterial disease, lower extremities bilaterally. Decreased level of consciousness and confusion. PLAN: To call Earnest Andersen MD, when son is here to coordinate medical care. Leslie Steiner PA-C /[phone]
[2017-09-25] MEDS: hydrOXYzine HCl 25 MG Tab PO SCH ×3 (08:38→21:01)
[2017-09-25] MEDS: Levothyroxine 112 MCG Tab PO SCH (08:38)
[2017-09-25] MEDS: predniSONE 5 MG Tab PO SCH (08:39)
[2017-09-25] MEDS: Polyethylene Glycol 3350 Powder 17 GM Packet PO SCH ×2 (08:39→11:13)
[2017-09-25] MEDS: Allopurinol 100 MG Tab PO SCH (08:40)
[2017-09-25] MEDS: Zinc Oxide 20% Oint 56.7 GM Tube TOP SCH (08:40)
[2017-09-25] MEDS ORDERED: Metoprolol Succinate 25 MG Tab.ER PO SCH (09:00)
[2017-09-25] MEDS ORDERED: Ferrous Sulfate 325 MG Tab PO SCH (09:00)
[2017-09-25] MEDS ORDERED: Folic Acid 1 MG Tab PO SCH (09:00)
[2017-09-25] MEDS: ceFAZolin 1 GM in Premix Bag 1 BAG IV SCH (09:24)
[2017-09-25] MEDS ORDERED: fentaNYL 50 MCG/HR Transdermal Patch TRDERM SCH (10:00)
[2017-09-25] MEDS ORDERED: LORazepam 2 MG/ML MDV IVPUSH PRN (12:42)
--- NOTE | 2017-09-25 12:51 | PCM.PN ---
- General Info Date of Service: 09/25/17 Subjective Update: Patient has remained very lethargic since admission yesterday, white count remains elevated and she did experience an episode of hypotension this morning. She has been seen and evaluated by Dr. Andersen, recommendation to proceed with bilateral [id number] amputations. I've reviewed this with the patient's son who is her medical power of associate attorney and he feels that it's consistent with her previously expressed wishes that we not proceed with further aggressive interventions or treatment. She will be switched to comfort cares only and we will manage symptomatically for comfort, there will be no further laboratory studies or diagnostic tests and antibiotics will be discontinued. - Review of Systems Psychiatric: Reports: Confusion - Patient Data Vitals - Most Recent: Last Vital Signs Temp 98.1 F 09/25/17 12:16 Pulse 64 09/25/17 12:16 Resp 18 09/25/17 12:16 BP 116/46 L 09/25/17 12:16 Pulse Ox 98 09/25/17 11:30 Weight - Most Recent: 231 lb 5.014 oz I&O - Last 24 Hours: Intake & Output 09/24/17 09/25/17 09/25/17 22:59 06:59 14:59 Intake Total 240 1422 550 Output Total 700 Balance 240 722 550 Lab Results Last 24 Hours: Laboratory Results - last 24 hr 09/25/17 09/25/17 09/25/17 Range/Units 05:30 05:59 05:59 WBC 22.9 H (4.5-11.0) K/uL RBC 2.69 L (3.30-5.50) M/uL Hgb 7.8 L (12.0-15.0) g/dL Hct 24.7 L (36.0-48.0) % MCV 92 (80-98) fL MCH 29 (27-31) pg MCHC 32 (32-36) % Plt Count 477 H (150-400) K/uL Add Manual Diff Yes Neutrophils % (Manual) 78 H (36-66) % Band Neutrophils % 4 L (5-11) % Lymphocytes % (Manual) 7 L (24-44) % Monocytes % (Manual) 4 (2-6) % Eosinophils % (Manual) 6 H (2-4) % Basophils % (Manual) 1 (0-1) % Polychromasia Sodium 140 (140-148) mmol/L Potassium 4.3 (3.6-5.2) mmol/L Chloride 105 (100-108) mmol/L Carbon Dioxide 30 (21-32) mmol/L Anion Gap 4.8 L (5.0-14.0) mmol/L BUN 50 H (7-18) mg/dL Creatinine 2.2 H (0.6-1.0) mg/dL Est Cr Clr Drug Dosing 16.86 mL/min Estimated GFR (MDRD) 21 L (>60) Glucose 49 L* (74-106) mg/dL Calcium 8.4 L (8.5-10.1) mg/dL Magnesium 2.2 (1.8-2.4) mg/dL Blood Type O NEGATIVE Gel Antibody Screen Negative Crossmatch See Detail Med Orders - Current: Current Medications Acetaminophen (Tylenol) 650 mg PO Q4H PRN PRN Reason: Pain (Mild 1-3)/fever Allopurinol (Zyloprim) 100 mg PO DAILY [facility] Last Admin: 09/25/17 08:40 Dose: 100 mg Dextrose (Glutose 15) 15 gm PO ONETIME PRN PRN Reason: Hypoglycemia Dextrose/Water (Dextrose 50% In Water) 50 ml IV ONETIME PRN PRN Reason: Hypoglycemia Escitalopram Oxalate (Lexapro) 10 mg PO BEDTIME [facility] Last Admin: 09/24/17 20:47 Dose: 10 mg Fentanyl (Duragesic) 50 mcg TRDERM Q72H [facility] Last Admin: 09/25/17 10:01 Dose: 50 mcg Hydromorphone HCl (Dilaudid) 0.5 mg IVPUSH Q1H PRN PRN Reason: Pain Hydroxyzine HCl (Atarax) 25 mg PO TID [facility] Last Admin: 09/25/17 08:38 Dose: 25 mg Insulin Aspart (Novolog) 0 unit SUBCUT QIDACANDBED [facility] PRN Reason: Protocol Last Admin: 09/25/17 12:03 Dose: Not Given Levothyroxine Sodium (Levothyroxine) 112 mcg PO DAILY@0730 [facility] Last Admin: 09/25/17 08:38 Dose: 112 mcg Lorazepam (Ativan) 0.5 mg IVPUSH Q2H PRN PRN Reason: Anxiety Magnesium Hydroxide (Milk Of Magnesia) 30 ml PO Q12H PRN PRN Reason: Constipation Multi-Ingred Cream/Lotion/Oil/Oint (Zinc Oxide) 0 gm TOP BID [facility] Last Admin: 09/25/17 08:40 Dose: 1 applic Ondansetron HCl (Zofran) 4 mg IV Q4H PRN PRN Reason: Nausea/Vomiting Oxycodone/Acetaminophen (Percocet 325-5 Mg) 1 tab PO Q4H PRN PRN Reason: Pain Last Admin: 09/25/17 12:12 Dose: 1 tab Polyethylene Glycol (Miralax) 17 gm PO DAILY [facility] Last Admin: 09/25/17 11:13 Dose: Not Given Prednisone (Prednisone) 2.5 mg PO DAILY@0800 [facility] Last Admin: 09/25/17 08:39 Dose: 2.5 mg Ropinirole HCl (Requip) 0.5 mg PO BEDTIME [facility] Last Admin: 09/24/17 20:47 Dose: 0.5 mg Senna/Docusate Sodium (Senna Plus) 1 tab PO DAILY [facility] Last Admin: 09/25/17 08:38 Dose: 1 tab Sodium Chloride (Saline Flush) 10 ml FLUSH ASDIRECTED PRN PRN Reason: Keep Vein Open Discontinued Medications Bumetanide (Bumex) 2 mg PO DAILY@0800 [facility] Bumetanide (Bumex) 1 mg PO DAILY@1400 [facility] Dextrose/Water (Dextrose 50% In Water) 50 ml IVPUSH ONETIME ONE Stop: 09/25/17 08:31 Last Admin: 09/25/17 08:13 Dose: 50 ml Enoxaparin Sodium (Lovenox) 30 mg SUBCUT Q24H [facility] Last Admin: 09/24/17 20:47 Dose: 30 mg Ferrous Sulfate (Ferrous Sulfate) 325 mg PO DAILY [facility] Last Admin: 09/25/17 08:39 Dose: 325 mg Folic Acid (Folic Acid) 1 mg PO DAILY [facility] Last Admin: 09/25/17 08:39 Dose: 1 mg Hydromorphone HCl (Dilaudid) 0.5 mg IVPUSH ONETIME ONE Stop: 09/24/17 13:42 Last Admin: 09/24/17 13:54 Dose: 0.5 mg Hydromorphone HCl (Dilaudid) 0.5 mg IVPUSH ONETIME ONE Stop: 09/24/17 15:29 Last Admin: 09/24/17 15:33 Dose: 0.5 mg Sodium Chloride (Normal Saline) 1,000 mls @ 300 mls/hr IV ASDIRECTED [facility] Last Admin: 09/24/17 13:09 Dose: 300 mls/hr Ceftriaxone Sodium 1 gm/ (Sodium Chloride) 50 mls @ 100 mls/hr IV ONETIME ONE Stop: 09/24/17 14:08 Last Admin: 09/24/17 13:59 Dose: 100 mls/hr Clindamycin Phosphate 600 mg/ (Sodium Chloride) 54 mls @ 100 mls/hr IV Q6H [facility] Last Admin: 09/25/17 05:18 Dose: 100 mls/hr Lactated Ringer's (Ringers, Lactated) 1,000 mls @ 125 mls/hr IV ASDIRECTED [facility] Last Admin: 09/25/17 03:01 Dose: 125 mls/hr Cefazolin Sodium/Dextrose 1 gm (/ Premix) 50 mls @ 100 mls/hr IV Q12H [facility] Last Admin: 09/25/17 09:24 Dose: 100 mls/hr Sodium Chloride (Normal Saline) 500 mls @ 500 mls/hr IV .BOLUS ONE Stop: 09/25/17 08:48 Last Admin: 09/25/17 08:01 Dose: 500 mls/hr Insulin Aspart (Novolog) 14 unit SUBCUT TID [facility] Insulin Detemir (Levemir) 15 unit SUBCUT BID [facility] Last Admin: 09/24/17 20:48 Dose: 15 units Metoprolol Succinate (Toprol Xl) 25 mg PO DAILY [facility] Last Admin: 09/25/17 11:13 Dose: Not Given Verify Fentanyl (Patch) 0 each TOP BID [facility] Ondansetron HCl (Zofran) 4 mg IVPUSH ONETIME ONE Stop: 09/24/17 15:28 Last Admin: 09/24/17 15:31 Dose: 4 mg Silver Sulfadiazine (Silvadene 1% Cream 50 Gm) 5 gm TOP ONETIME ONE Stop: 09/24/17 16:17 Last Admin: 09/24/17 16:19 Dose: 1 applic Sodium Chloride (Saline Flush) 10 ml FLUSH ASDIRECTED PRN PRN Reason: Keep Vein Open Last Admin: 09/24/17 13:09 Dose: 10 ml - Exam General: Lethargic HEENT: Other (Inflammation left face with associated swelling) Lungs: Clear to Auscultation, Normal Respiratory Effort Cardiovascular: Regular Rate, Regular Rhythm, Murmurs GI/Abdominal Exam: Normal Bowel Sounds, Soft, Non-Tender, No Organomegaly Extremities: Pedal Edema, Other (Venous stasis ulcers and necrotic areas both lower extremities worse on the right) - Problem List Review Problem List Initiated/Reviewed/Updated: Yes - My Orders Last 24 Hours: My Active Orders 09/24/17 16:35 Resuscitation Status Routine 09/24/17 17:01 Patient Status [ADT] Routine Blood Glucose Check, Bedside [RC] QIDACANDBED Communication Order [RC] STAT Diabetes Education [RC] Click to Edit Height and Weight [RC] 0511 Oxygen Therapy [RC] PRN Peripheral IV Care [RC] . DIRECTED Up With Assistance [RC] ASDIRECTED Acetaminophen [Tylenol] 650 mg PO Q4H PRN Acetaminophen/oxyCODONE [Percocet 325-5 MG] 1 tab PO Q4H PRN Dextrose 50% in Water 50 ml IV ONETIME PRN Dextrose [Glutose 15] 15 gm PO ONETIME PRN Insulin Aspart [NovoLOG] See Protocol SUBCUT QIDACANDBED Magnesium Hydroxide [Milk of Magnesia] 30 ml PO Q12H PRN Ondansetron [Zofran] 4 mg IV Q4H PRN Sodium Chloride 0.9% [Saline Flush] 10 ml FLUSH ASDIRECTED PRN 09/24/17 21:00 Escitalopram [Lexapro] 10 mg PO BEDTIME Zinc Oxide 0 gm TOP BID hydrOXYzine HCl [Atarax] 25 mg PO TID rOPINIRole [Requip] 0.5 mg PO BEDTIME 09/24/17 Dinner 2 Gram Sodium Diet [DIET] Consistent Carbohydrate Diet [DIET] 09/25/17 05:30 PATIENT RETYPE [BBK] Routine RED BLOOD CELLS LP [BBK] Routine TYPE AND SCREEN [BBK] Routine 09/25/17 07:30 Levothyroxine 112 mcg PO DAILY@0730 09/25/17 08:00 predniSONE 2.5 mg PO DAILY@0800 09/25/17 08:18 Transfuse Red Blood Cells [COMM] Urgent 09/25/17 09:00 Allopurinol [Zyloprim] 100 mg PO DAILY Docusate Sodium/Sennosides [Senna Plus] 1 tab PO DAILY Polyethylene Glycol 3350 [MiraLAX] 17 gm PO DAILY 09/25/17 10:00 fentaNYL [Duragesic] 50 mcg TRDERM Q72H 09/25/17 12:42 HYDROmorphone [Dilaudid] 0.5 mg IVPUSH Q1H PRN LORazepam [Ativan] 0.5 mg IVPUSH Q2H PRN Convert IV to Saline Lock [OM.PC] Routine 09/25/17 16:30 GLUCOSE POC LAB TO COLLECT [POC] QIDACANDBED 09/25/17 21:00 GLUCOSE POC LAB TO COLLECT [POC] QIDACANDBED 09/26/17 07:30 GLUCOSE POC LAB TO COLLECT [POC] QIDACANDBED 09/26/17 11:30 GLUCOSE POC LAB TO COLLECT [POC] QIDACANDBED 09/26/17 16:30 GLUCOSE POC LAB TO COLLECT [POC] QIDACANDBED 09/26/17 21:00 GLUCOSE POC LAB TO COLLECT [POC] QIDACANDBED 09/27/17 07:30 GLUCOSE POC LAB TO COLLECT [POC] QIDACANDBED 09/27/17 11:30 GLUCOSE POC LAB TO COLLECT [POC] QIDACANDBED 09/27/17 16:30 GLUCOSE POC LAB TO COLLECT [POC] QIDACANDBED 09/27/17 21:00 GLUCOSE POC LAB TO COLLECT [POC] QIDACANDBED 09/28/17 07:30 GLUCOSE POC LAB TO COLLECT [POC] QIDACANDBED 09/28/17 11:30 GLUCOSE POC LAB TO COLLECT [POC] QIDACANDBED 09/28/17 16:30 GLUCOSE POC LAB TO COLLECT [POC] QIDACANDBED 09/28/17 21:00 GLUCOSE POC LAB TO COLLECT [POC] QIDACANDBED 09/29/17 07:30 GLUCOSE POC LAB TO COLLECT [POC] QIDACANDBED 09/29/17 11:30 GLUCOSE POC LAB TO COLLECT [POC] QIDACANDBED 09/29/17 16:30 GLUCOSE POC LAB TO COLLECT [POC] QIDACANDBED 09/29/17 21:00 GLUCOSE POC LAB TO COLLECT [POC] QIDACANDBED 09/30/17 07:30 GLUCOSE POC LAB TO COLLECT [POC] QIDACANDBED 09/30/17 11:30 GLUCOSE POC LAB TO COLLECT [POC] QIDACANDBED 09/30/17 16:30 GLUCOSE POC LAB TO COLLECT [POC] QIDACANDBED 09/30/17 21:00 GLUCOSE POC LAB TO COLLECT [POC] QIDACANDBED 10/01/17 07:30 GLUCOSE POC LAB TO COLLECT [POC] QIDACANDBED 10/01/17 11:30 GLUCOSE POC LAB TO COLLECT [POC] QIDACANDBED 10/01/17 16:30 GLUCOSE POC LAB TO COLLECT [POC] QIDACANDBED 10/01/17 21:00 GLUCOSE POC LAB TO COLLECT [POC] QIDACANDBED 10/02/17 07:30 GLUCOSE POC LAB TO COLLECT [POC] QIDACANDBED 10/02/17 11:30 GLUCOSE POC LAB TO COLLECT [POC] QIDACANDBED 10/02/17 16:30 GLUCOSE POC LAB TO COLLECT [POC] QIDACANDBED 10/02/17 21:00 GLUCOSE POC LAB TO COLLECT [POC] QIDACANDBED 10/03/17 07:30 GLUCOSE POC LAB TO COLLECT [POC] QIDACANDBED 10/03/17 11:30 GLUCOSE POC LAB TO COLLECT [POC] QIDACANDBED 10/03/17 16:30 GLUCOSE POC LAB TO COLLECT [POC] QIDACANDBED 10/03/17 21:00 GLUCOSE POC LAB TO COLLECT [POC] QIDACANDBED 10/04/17 07:30 GLUCOSE POC LAB TO COLLECT [POC] QIDACANDBED 10/04/17 11:30 GLUCOSE POC LAB TO COLLECT [POC] QIDACANDBED 10/04/17 16:30 GLUCOSE POC LAB TO COLLECT [POC] QIDACANDBED 10/04/17 21:00 GLUCOSE POC LAB TO COLLECT [POC] QIDACANDBED 10/05/17 07:30 GLUCOSE POC LAB TO COLLECT [POC] QIDACANDBED 10/05/17 11:30 GLUCOSE POC LAB TO COLLECT [POC] QIDACANDBED 10/05/17 16:30 GLUCOSE POC LAB TO COLLECT [POC] QIDACANDBED 10/05/17 21:00 GLUCOSE POC LAB TO COLLECT [POC] QIDACANDBED 10/06/17 07:30 GLUCOSE POC LAB TO COLLECT [POC] QIDACANDBED 10/06/17 11:30 GLUCOSE POC LAB TO COLLECT [POC] QIDACANDBED 10/06/17 16:30 GLUCOSE POC LAB TO COLLECT [POC] QIDACANDBED 10/06/17 21:00 GLUCOSE POC LAB TO COLLECT [POC] QIDACANDBED 10/07/17 07:30 GLUCOSE POC LAB TO COLLECT [POC] QIDACANDBED 10/07/17 11:30 GLUCOSE POC LAB TO COLLECT [POC] QIDACANDBED 10/07/17 16:30 GLUCOSE POC LAB TO COLLECT [POC] QIDACANDBED 10/07/17 21:00 GLUCOSE POC LAB TO COLLECT [POC] QIDACANDBED 10/08/17 07:30 GLUCOSE POC LAB TO COLLECT [POC] QIDACANDBED 10/08/17 11:30 GLUCOSE POC LAB TO COLLECT [POC] QIDACANDBED 10/08/17 16:30 GLUCOSE POC LAB TO COLLECT [POC] QIDACANDBED 10/08/17 21:00 GLUCOSE POC LAB TO COLLECT [POC] QIDACANDBED 10/09/17 07:30 GLUCOSE POC LAB TO COLLECT [POC] QIDACANDBED 10/09/17 11:30 GLUCOSE POC LAB TO COLLECT [POC] QIDACANDBED 10/09/17 16:30 GLUCOSE POC LAB TO COLLECT [POC] QIDACANDBED 10/09/17 21:00 GLUCOSE POC LAB TO COLLECT [POC] QIDACANDBED 10/10/17 07:30 GLUCOSE POC LAB TO COLLECT [POC] QIDACANDBED 10/10/17 11:30 GLUCOSE POC LAB TO COLLECT [POC] QIDACANDBED 10/10/17 16:30 GLUCOSE POC LAB TO COLLECT [POC] QIDACANDBED 10/10/17 21:00 GLUCOSE POC LAB TO COLLECT [POC] QIDACANDBED 10/11/17 07:30 GLUCOSE POC LAB TO COLLECT [POC] QIDACANDBED 10/11/17 11:30 GLUCOSE POC LAB TO COLLECT [POC] QIDACANDBED 10/11/17 16:30 GLUCOSE POC LAB TO COLLECT [POC] QIDACANDBED 10/11/17 21:00 GLUCOSE POC LAB TO COLLECT [POC] QIDACANDBED 10/12/17 07:30 GLUCOSE POC LAB TO COLLECT [POC] QIDACANDBED 10/12/17 11:30 GLUCOSE POC LAB TO COLLECT [POC] QIDACANDBED 10/12/17 16:30 GLUCOSE POC LAB TO COLLECT [POC] QIDACANDBED 10/12/17 21:00 GLUCOSE POC LAB TO COLLECT [POC] QIDACANDBED 10/13/17 07:30 GLUCOSE POC LAB TO COLLECT [POC] QIDACANDBED 10/13/17 11:30 GLUCOSE POC LAB TO COLLECT [POC] QIDACANDBED 10/13/17 16:30 GLUCOSE POC LAB TO COLLECT [POC] QIDACANDBED 10/13/17 21:00 GLUCOSE POC LAB TO COLLECT [POC] QIDACANDBED 10/14/17 07:30 GLUCOSE POC LAB TO COLLECT [POC] QIDACANDBED 10/14/17 11:30 GLUCOSE POC LAB TO COLLECT [POC] QIDACANDBED 10/14/17 16:30 GLUCOSE POC LAB TO COLLECT [POC] QIDACANDBED 10/14/17 21:00 GLUCOSE POC LAB TO COLLECT [POC] QIDACANDBED 10/15/17 07:30 GLUCOSE POC LAB TO COLLECT [POC] QIDACANDBED 10/15/17 11:30 GLUCOSE POC LAB TO COLLECT [POC] QIDACANDBED 10/15/17 16:30 GLUCOSE POC LAB TO COLLECT [POC] QIDACANDBED 10/15/17 21:00 GLUCOSE POC LAB TO COLLECT [POC] QIDACANDBED 10/16/17 07:30 GLUCOSE POC LAB TO COLLECT [POC] QIDACANDBED 10/16/17 11:30 GLUCOSE POC LAB TO COLLECT [POC] QIDACANDBED 10/16/17 16:30 GLUCOSE POC LAB TO COLLECT [POC] QIDACANDBED 10/16/17 21:00 GLUCOSE POC LAB TO COLLECT [POC] QIDACANDBED 10/17/17 07:30 GLUCOSE POC LAB TO COLLECT [POC] QIDACANDBED 10/17/17 11:30 GLUCOSE POC LAB TO COLLECT [POC] QIDACANDBED 10/17/17 16:30 GLUCOSE POC LAB TO COLLECT [POC] QIDACANDBED 10/17/17 21:00 GLUCOSE POC LAB TO COLLECT [POC] QIDACANDBED 10/18/17 07:30 GLUCOSE POC LAB TO COLLECT [POC] QIDACANDBED 10/18/17 11:30 GLUCOSE POC LAB TO COLLECT [POC] QIDACANDBED 10/18/17 16:30 GLUCOSE POC LAB TO COLLECT [POC] QIDACANDBED 10/18/17 21:00 GLUCOSE POC LAB TO COLLECT [POC] QIDACANDBED 10/19/17 07:30 GLUCOSE POC LAB TO COLLECT [POC] QIDACANDBED 10/19/17 11:30 GLUCOSE POC LAB TO COLLECT [POC] QIDACANDBED - Plan Plan:: ASSESSMENT AND PLAN PAROTIDITIS-family is decided on comfort cares only BILATERAL VENOUS STASIS ULCERS-underlying peripheral arterial disease. Right leg seems to be much more severe than the left, arterial Doppler studies show poor flow into both lower extremities. No evidence of significant cellulitis at the present time. ACUTE KIDNEY INJURY-renal function improved overnight with IV fluids TYPE 2 DIABETES MELLITUS -4 times a day glucometers -Moderate dose sliding scale NovoLog PALLIATIVE CARE-patient's son who is her healthcare power of associate attorney has decided that his mother would not want to proceed with bilateral [id number] amputations and should be treated with comfort cares only -Dilaudid 0.5 mg IV every hour as needed for pain -Lorazepam 0.5 mg IV every 2 hours as needed for anxiety -Continue fentanyl patch 50 g -Plan to convert to oral medication in a.m. MAINTENANCE ISSUES -DVT prophylaxis; comfort cares only -GI prophylaxis; not indicated -Blanco catheter; not indicated -Nutrition; 2 g sodium diabetic diet -Nicotine dependence; not required CODE STATUS-COMFORT CARES ONLY ADMISSION STATUS-patient will be admitted to inpatient status, expect at least a 2 night hospital stay for evaluation and management of problems as outlined above. At the time of this admission I do not reasonably expected evaluation and management of this problem will require more than a 96 hour hospital stay. DISPOSITION-anticipate discharge to home after the hospital stay. PRIMARY CARE PROVIDER-Dr. Castro
[2017-09-25 13:03] VITALS: BP 92/27
[2017-09-25] MEDS: HYDROmorphone 0.5 MG/0.5 ML Syringe IVPUSH PRN ×2 (13:07→14:25)
[2017-09-25] MEDS ORDERED: HYDROmorphone 0.5 MG/0.5 ML Syringe IVPUSH PRN (15:08)
[2017-09-25] MEDS: HYDROmorphone 1 MG/ML Syringe IV PRN ×4 (15:17→22:45)
[2017-09-25] MEDS: LORazepam 2 MG/ML MDV IVPUSH PRN (16:37)
[2017-09-25] MEDS ORDERED: VERIFY FENTANYL PATCH TOP SCH (21:00)
[2017-09-25] MEDS: Escitalopram 10 MG Tab PO SCH (21:01)
[2017-09-25] MEDS: rOPINIRole 0.5 MG Tab PO SCH (21:01)
[2017-09-26] MEDS: HYDROmorphone 1 MG/ML Syringe IV PRN ×6 (02:00→13:20)
[2017-09-26] MEDS: Zinc Oxide 20% Oint 56.7 GM Tube TOP SCH ×2 (02:02→11:30)
[2017-09-26] MEDS: LORazepam 2 MG/ML MDV IVPUSH PRN (09:07)
[2017-09-26] MEDS: Insulin Aspart 100 Units/ML 3 ML Pen SUBCUT SCH (09:54)
[2017-09-26] MEDS ORDERED: HYDROmorphone 1 MG/ML Syringe IVPUSH ONE (09:57)
--- NOTE | 2017-09-26 10:45 | PCM.PN ---
- General Info Date of Service: 09/26/17 Subjective Update: This patient has remained fairly comfortable over the past 24 hours especially during the evening and night. This morning's appearing somewhat more uncomfortable despite regular doses of IV Dilaudid. Will attempt to transition to sublingual morphine and lorazepam today as well as increase her dose of fentanyl patch. - Review of Systems Psychiatric: Reports: Confusion - Patient Data Vitals - Most Recent: Last Vital Signs Temp 97.7 F 09/25/17 13:01 Pulse 64 09/25/17 13:01 Resp 18 09/25/17 13:01 BP 92/27 L 09/25/17 13:01 Pulse Ox 98 09/25/17 13:01 Weight - Most Recent: 231 lb 5.014 oz I&O - Last 24 Hours: Intake & Output 09/25/17 09/26/17 09/26/17 22:59 06:59 14:59 Output Total 450 Balance -450 Lab Results Last 24 Hours: Laboratory Results - last 24 hr 09/25/17 Range/Units 05:30 Blood Type O NEGATIVE Gel Antibody Screen Negative Crossmatch See Detail Med Orders - Current: Current Medications Fentanyl (Duragesic) 75 mcg TRDERM Q72H [facility] Hydromorphone HCl (Dilaudid) 1 mg IV Q1H PRN PRN Reason: Pain Last Admin: 09/26/17 09:32 Dose: 1 mg Lorazepam (Ativan) 1 mg IVPUSH Q2H PRN PRN Reason: Anxiety Last Admin: 09/26/17 09:07 Dose: 1 mg Lorazepam (Ativan Oral Concentrate 1mg/0.5 Ml U/D) 1 mg PO Q2H PRN PRN Reason: Agitation Morphine Sulfate (Morphine 10 Mg/0.5 Ml Oral Syringe) 20 mg SL Q1H PRN PRN Reason: Pain Multi-Ingred Cream/Lotion/Oil/Oint (Zinc Oxide) 0 gm TOP BID [facility] Last Admin: 09/26/17 02:02 Dose: 1 applic Ondansetron HCl (Zofran) 4 mg IV Q4H PRN PRN Reason: Nausea/Vomiting Polyethylene Glycol (Miralax) 17 gm PO DAILY [facility] Last Admin: 09/25/17 11:13 Dose: Not Given Sodium Chloride (Saline Flush) 10 ml FLUSH ASDIRECTED PRN PRN Reason: Keep Vein Open Discontinued Medications Acetaminophen (Tylenol) 650 mg PO Q4H PRN PRN Reason: Pain (Mild 1-3)/fever Allopurinol (Zyloprim) 100 mg PO DAILY [facility] Last Admin: 09/25/17 08:40 Dose: 100 mg Bumetanide (Bumex) 2 mg PO DAILY@0800 [facility] Bumetanide (Bumex) 1 mg PO DAILY@1400 [facility] Dextrose (Glutose 15) 15 gm PO ONETIME PRN PRN Reason: Hypoglycemia Dextrose/Water (Dextrose 50% In Water) 50 ml IV ONETIME PRN PRN Reason: Hypoglycemia Dextrose/Water (Dextrose 50% In Water) 50 ml IVPUSH ONETIME ONE Stop: 09/25/17 08:31 Last Admin: 09/25/17 08:13 Dose: 50 ml Enoxaparin Sodium (Lovenox) 30 mg SUBCUT Q24H [facility] Last Admin: 09/24/17 20:47 Dose: 30 mg Escitalopram Oxalate (Lexapro) 10 mg PO BEDTIME [facility] Last Admin: 09/25/17 21:01 Dose: Not Given Fentanyl (Duragesic) 50 mcg TRDERM Q72H [facility] Last Admin: 09/25/17 10:01 Dose: 50 mcg Ferrous Sulfate (Ferrous Sulfate) 325 mg PO DAILY [facility] Last Admin: 09/25/17 08:39 Dose: 325 mg Folic Acid (Folic Acid) 1 mg PO DAILY [facility] Last Admin: 09/25/17 08:39 Dose: 1 mg Hydromorphone HCl (Dilaudid) 0.5 mg IVPUSH ONETIME ONE Stop: 09/24/17 13:42 Last Admin: 09/24/17 13:54 Dose: 0.5 mg Hydromorphone HCl (Dilaudid) 0.5 mg IVPUSH ONETIME ONE Stop: 09/24/17 15:29 Last Admin: 09/24/17 15:33 Dose: 0.5 mg Hydromorphone HCl (Dilaudid) 0.5 mg IVPUSH Q1H PRN PRN Reason: Pain Last Admin: 09/25/17 14:25 Dose: 0.5 mg Hydromorphone HCl (Dilaudid) 1 mg IVPUSH ONETIME ONE Stop: 09/26/17 09:58 Last Admin: 09/26/17 10:10 Dose: 1 mg Hydroxyzine HCl (Atarax) 25 mg PO TID [facility] Last Admin: 09/25/17 21:01 Dose: Not Given Sodium Chloride (Normal Saline) 1,000 mls @ 300 mls/hr IV ASDIRECTED [facility] Last Admin: 09/24/17 13:09 Dose: 300 mls/hr Ceftriaxone Sodium 1 gm/ (Sodium Chloride) 50 mls @ 100 mls/hr IV ONETIME ONE Stop: 09/24/17 14:08 Last Admin: 09/24/17 13:59 Dose: 100 mls/hr Clindamycin Phosphate 600 mg/ (Sodium Chloride) 54 mls @ 100 mls/hr IV Q6H [facility] Last Admin: 09/25/17 14:03 Dose: Not Given Lactated Ringer's (Ringers, Lactated) 1,000 mls @ 125 mls/hr IV ASDIRECTED [facility] Last Admin: 09/25/17 03:01 Dose: 125 mls/hr Cefazolin Sodium/Dextrose 1 gm (/ Premix) 50 mls @ 100 mls/hr IV Q12H [facility] Last Admin: 09/25/17 09:24 Dose: 100 mls/hr Sodium Chloride (Normal Saline) 500 mls @ 500 mls/hr IV .BOLUS ONE Stop: 09/25/17 08:48 Last Admin: 09/25/17 08:01 Dose: 500 mls/hr Insulin Aspart (Novolog) 14 unit SUBCUT TID [facility] Insulin Aspart (Novolog) 0 unit SUBCUT QIDACANDBED [facility] PRN Reason: Protocol Last Admin: 09/26/17 09:54 Dose: Not Given Insulin Detemir (Levemir) 15 unit SUBCUT BID [facility] Last Admin: 09/24/17 20:48 Dose: 15 units Levothyroxine Sodium (Levothyroxine) 112 mcg PO DAILY@0730 [facility] Last Admin: 09/25/17 08:38 Dose: 112 mcg Lorazepam (Ativan) 0.5 mg IVPUSH Q2H PRN PRN Reason: Anxiety Last Admin: 09/25/17 13:56 Dose: 0.5 mg Magnesium Hydroxide (Milk Of Magnesia) 30 ml PO Q12H PRN PRN Reason: Constipation Metoprolol Succinate (Toprol Xl) 25 mg PO DAILY [facility] Last Admin: 09/25/17 11:13 Dose: Not Given Verify Fentanyl (Patch) 0 each TOP BID [facility] Ondansetron HCl (Zofran) 4 mg IVPUSH ONETIME ONE Stop: 09/24/17 15:28 Last Admin: 09/24/17 15:31 Dose: 4 mg Oxycodone/Acetaminophen (Percocet 325-5 Mg) 1 tab PO Q4H PRN PRN Reason: Pain Last Admin: 09/25/17 12:12 Dose: 1 tab Prednisone (Prednisone) 2.5 mg PO DAILY@0800 [facility] Last Admin: 09/25/17 08:39 Dose: 2.5 mg Ropinirole HCl (Requip) 0.5 mg PO BEDTIME [facility] Last Admin: 09/25/17 21:01 Dose: Not Given Senna/Docusate Sodium (Senna Plus) 1 tab PO DAILY [facility] Last Admin: 09/25/17 08:38 Dose: 1 tab Silver Sulfadiazine (Silvadene 1% Cream 50 Gm) 5 gm TOP ONETIME ONE Stop: 09/24/17 16:17 Last Admin: 09/24/17 16:19 Dose: 1 applic Sodium Chloride (Saline Flush) 10 ml FLUSH ASDIRECTED PRN PRN Reason: Keep Vein Open Last Admin: 09/24/17 13:09 Dose: 10 ml - Exam General: Sedated, Lethargic Lungs: Clear to Auscultation, Normal Respiratory Effort Cardiovascular: Regular Rate, Regular Rhythm, No Murmurs - Problem List Review Problem List Initiated/Reviewed/Updated: Yes - My Orders Last 24 Hours: My Active Orders 09/25/17 12:42 Convert IV to Saline Lock [OM.PC] Routine 09/25/17 15:10 HYDROmorphone [Dilaudid] 1 mg IV Q1H PRN 09/25/17 16:14 LORazepam [Ativan] 1 mg IVPUSH Q2H PRN 09/26/17 10:36 LORazepam [Ativan ORAL Concentrate 1MG/0.5 ML U/D] 1 mg PO Q2H PRN Morphine [Morphine 10 MG/0.5 ML Oral Syringe] 20 mg SL Q1H PRN 09/26/17 10:45 fentaNYL [Duragesic] 75 mcg TRDERM Q72H - Plan Plan:: ASSESSMENT AND PLAN PAROTIDITIS-family has decided on comfort cares only BILATERAL VENOUS STASIS ULCERS-underlying peripheral arterial disease. Right leg seems to be much more severe than the left, arterial Doppler studies show poor flow into both lower extremities. No evidence of significant cellulitis at the present time. ACUTE KIDNEY INJURY-renal function improved overnight with IV fluids TYPE 2 DIABETES MELLITUS -4 times a day glucometers -Moderate dose sliding scale NovoLog PALLIATIVE CARE-patient's son who is her healthcare power of county attorney has decided that his mother would not want to proceed with bilateral [id number] amputations and should be treated with comfort cares only -Dilaudid 0.5 mg IV every hour as needed for pain -Lorazepam 0.5 mg IV every 2 hours as needed for anxiety -Increase fentanyl patch to 75 g every 3 days -Morphine sulfate 20 mg sublingually every hour as needed -Lorazepam 1 mg sublingually every 2 hours as needed MAINTENANCE ISSUES -DVT prophylaxis; comfort cares only -GI prophylaxis; not indicated -Blanco catheter; not indicated -Nutrition; 2 g sodium diabetic diet -Nicotine dependence; not required CODE STATUS-COMFORT CARES ONLY ADMISSION STATUS-patient will be admitted to inpatient status, expect at least a 2 night hospital stay for evaluation and management of problems as outlined above. At the time of this admission I do not reasonably expected evaluation and management of this problem will require more than a 96 hour hospital stay. DISPOSITION-anticipate discharge to home after the hospital stay. PRIMARY CARE PROVIDER-Dr. Castro
[2017-09-26] MEDS ORDERED: fentaNYL 75 MCG/HR Transdermal Patch TRDERM SCH (11:00)
[2017-09-26] MEDS: hydrOXYzine HCl 25 MG Tab PO SCH (11:08)
[2017-09-26] MEDS: predniSONE 5 MG Tab PO SCH (11:08)
[2017-09-26] MEDS: Levothyroxine 112 MCG Tab PO SCH (11:08)
[2017-09-26] MEDS: Allopurinol 100 MG Tab PO SCH (11:09)
[2017-09-26] MEDS: Polyethylene Glycol 3350 Powder 17 GM Packet PO SCH (11:09)
[2017-09-26] MEDS: Morphine 10 MG/0.5 ML Oral Syringe SL PRN ×6 (12:30→20:43)
[2017-09-26] MEDS: LORazepam ORAL Concentrate 1MG/0.5ML U/D PO PRN ×4 (12:36→18:11)
[2017-09-26] MEDS ORDERED: VERIFY FENTANYL PATCH TOP SCH (21:00)
[2017-09-27] MEDS: Morphine 10 MG/0.5 ML Oral Syringe SL PRN (01:14)
[2017-09-27] MEDS: LORazepam ORAL Concentrate 1MG/0.5ML U/D PO PRN (01:14)
--- NOTE | 2017-09-27 09:21 | PCM.DCSUM1 ---
Discharge Summary - Hospital Course Brief History: Ms. Hernandez was an 87-year-old woman who was admitted through the emergency department with acute infection of her left parotid gland as well as chronic venous stasis ulcerations on both lower extremities, complicated by severe peripheral arterial disease with areas of necrosis especially on the right foot and leg. - Discharge Data Discharge Date: 09/27/17 Discharge Disposition: 20 Preliminary Cause of *Q: Other_Special Instruction (Peripheral arterial disease with severe ischemia and necrotic tissue right leg) Condition: - Discharge Diagnosis/Problem(s) (1) Infection of parotid gland SNOMED Code(s): 272767331 ICD Code: K11.20 - SIALOADENITIS, UNSPECIFIED Status: Acute (2) Atherosclerosis of [place] arteries of right leg with ulceration of other part of foot SNOMED Code(s): 493152531761371 ICD Code: I70.235 - ATHSCL TETLIN ARTERIES OF RIGHT LEG W ULCER OTH PRT FOOT Status: Chronic (3) Type 2 diabetes mellitus SNOMED Code(s): 41057343 ICD Code: E11.9 - TYPE 2 DIABETES MELLITUS WITHOUT COMPLICATIONS Status: Chronic (4) CKD (chronic kidney disease) stage 4, GFR 15-29 ml/min SNOMED Code(s): 330647872 ICD Code: N18.4 - CHRONIC KIDNEY DISEASE, STAGE 4 (SEVERE) Status: Acute - Patient Summary/Data Consults: Ms. Hernandez was seen and evaluated by Dr. Earnest Andersen for surgical opinion concerning her peripheral arterial disease and venous stasis ulcers. Hospital Course: Ms. Hernandez was an 87-year-old woman who been dealing with venous stasis ulcers of both lower extremities over the past several weeks. Ulcers that appeared to be healing but now over the past 1-2 weeks had developed increase in ulcerations with evidence of necrosis of the toes on the right foot. She had been followed up as an outpatient for this problem, but then developed significant swelling and pain in her left face. She presented to the emergency department for further evaluation. White blood cell count was elevated, CT scan of the face showed evidence of significant swelling and inflammation in the left parotid gland. Evaluation of her lower extremities showed necrosis of the toes on the right foot with a deep ulcer on the anterior aspect of her right lower leg. There were also many areas of severe superficial ulceration on the lower leg with associated necrotic tissue. Arterial Doppler study was obtained of both lower extremities in the emergency department and showed only monophasic flow in the lower aspect of each leg. She was admitted to the hospital and placed on IV antibiotic therapy for management of her left parotid infection. At the time of admission she was noted to have acute on chronic renal insufficiency with elevated creatinine from baseline and the GFR in the range of stage IV chronic kidney disease. She was given IV fluids for hydration and by the following morning there was improvement in her renal function but still area compromised. Blood cultures were obtained on admission and all 4 bottles were noted to be growing gram-positive cocci. She was seen and evaluated by Dr. Andersen for surgical consult on the day after admission, given the significant peripheral arterial disease as well as ongoing ulcerations and necrotic tissue he recommended to the family that they consider bilateral above- the-knee amputations. Patient's son who is her healthcare power of attorney law clerk felt strongly that his mother would not want to proceed with amputations and the decision was made to proceed with comfort cares only. All aggressive interventions were discontinued including IV antibiotics, IV fluids, laboratory studies and further diagnostic tests. She was treated with IV Dilaudid and lorazepam as needed for comfort these were transitioned to oral liquid morphine and lorazepam prior to her . Dose of her fentanyl patch was increased to 75 g daily. After decision had been made to switch to comfort cares only blood cultures did return showing evidence of MRSA growing from all 4 bottles. She early in the morning of September 28, no attempts were made at resuscitation as per patient's and family's previously expressed wishes. - Discharge Plan Home Medications: Home Meds Allopurinol [Zyloprim] 100 mg PO DAILY 06/29/17 [History] Bumetanide [Bumex] 1 mg PO DAILY 06/29/17 [History] Bumetanide [Bumex] 2 mg PO DAILY 06/29/17 [History] Ferrous Sulfate 1 tab PO DAILY 06/29/17 [History] Folic Acid 1 tab PO DAILY 06/29/17 [History] Hydroxychloroquine Sulfate [Plaquenil] 200 mg PO BID 06/29/17 [History] Insulin Aspart [Novolog Flexpen] 14 units SQ TID 06/29/17 [History] Insulin Detemir [Levemir] 15 unit SQ BID 06/29/17 [History] Levothyroxine 112 mcg PO DAILY 06/29/17 [History] Metoprolol Succinate [Toprol XL] 25 mg PO DAILY 06/29/17 [History] Sennosides/Docusate Sodium [Sennosides-Docusate Sodium] 1 tab PO DAILY 06/29/17 [History] predniSONE [Prednisone] 2.5 mg PO DAILY 06/29/17 [History] traMADol [Ultram] 1 tab PO BID 06/29/17 [History] Acetaminophen/oxyCODONE [Percocet 325-5 MG] 1 tab PO Q4H PRN 09/24/17 [History] Cephalexin [Keflex] 500 mg PO QID 09/24/17 [History] Escitalopram [Lexapro] 10 mg PO BEDTIME 09/24/17 [History] Lanolin/Mineral Oil [Eucerin Original Lotion] 1 appful TOP BID 09/24/17 [History ] Menthol/Zinc Oxide [Calmoseptine Ointment Packet] 1 applic TOP BID 09/24/17 [ History] Polyethylene Glycol 3350 [MiraLAX] 17 gm PO DAILY 09/24/17 [History] fentaNYL [Duragesic] 50 mcg TOP Q72H 09/24/17 [History] hydrOXYzine Pamoate [Vistaril] 25 mg PO TID 09/24/17 [History] rOPINIRole HCl [Requip] 0.5 mg PO BEDTIME 09/24/17 [History] Referrals: Marquise Castro MD [Primary Care Provider] - - Patient Data Vitals - Most Recent: Last Vital Signs Temp 97.7 F 09/25/17 13:01 Pulse 64 09/25/17 13:01 Resp 18 09/25/17 13:01 BP 92/27 L 09/25/17 13:01 Pulse Ox 98 09/25/17 13:01 Weight - Most Recent: 231 lb 5.014 oz I&O - Last 24 hours: Intake & Output 09/26/17 09/27/17 09/27/17 22:59 06:59 14:59 Output Total 175 Balance -175 Med Orders - Current: Current Medications Discontinued Medications Acetaminophen (Tylenol) 650 mg PO Q4H PRN PRN Reason: Pain (Mild 1-3)/fever Allopurinol (Zyloprim) 100 mg PO DAILY [facility] Last Admin: 09/26/17 11:09 Dose: Not Given Bumetanide (Bumex) 2 mg PO DAILY@0800 [facility] Bumetanide (Bumex) 1 mg PO DAILY@1400 [facility] Dextrose (Glutose 15) 15 gm PO ONETIME PRN PRN Reason: Hypoglycemia Dextrose/Water (Dextrose 50% In Water) 50 ml IV ONETIME PRN PRN Reason: Hypoglycemia Dextrose/Water (Dextrose 50% In Water) 50 ml IVPUSH ONETIME ONE Stop: 09/25/17 08:31 Last Admin: 09/25/17 08:13 Dose: 50 ml Enoxaparin Sodium (Lovenox) 30 mg SUBCUT Q24H [facility] Last Admin: 09/24/17 20:47 Dose: 30 mg Escitalopram Oxalate (Lexapro) 10 mg PO BEDTIME [facility] Last Admin: 09/25/17 21:01 Dose: Not Given Fentanyl (Duragesic) 50 mcg TRDERM Q72H [facility] Last Admin: 09/25/17 10:01 Dose: 50 mcg Fentanyl (Duragesic) 75 mcg TRDERM Q72H [facility] Last Admin: 09/26/17 11:36 Dose: 75 mcg Ferrous Sulfate (Ferrous Sulfate) 325 mg PO DAILY [facility] Last Admin: 09/25/17 08:39 Dose: 325 mg Folic Acid (Folic Acid) 1 mg PO DAILY [facility] Last Admin: 09/25/17 08:39 Dose: 1 mg Hydromorphone HCl (Dilaudid) 0.5 mg IVPUSH ONETIME ONE Stop: 09/24/17 13:42 Last Admin: 09/24/17 13:54 Dose: 0.5 mg Hydromorphone HCl (Dilaudid) 0.5 mg IVPUSH ONETIME ONE Stop: 09/24/17 15:29 Last Admin: 09/24/17 15:33 Dose: 0.5 mg Hydromorphone HCl (Dilaudid) 0.5 mg IVPUSH Q1H PRN PRN Reason: Pain Last Admin: 09/25/17 14:25 Dose: 0.5 mg Hydromorphone HCl (Dilaudid) 1 mg IV Q1H PRN PRN Reason: Pain Last Admin: 09/26/17 13:20 Dose: 1 mg Hydromorphone HCl (Dilaudid) 1 mg IVPUSH ONETIME ONE Stop: 09/26/17 09:58 Last Admin: 09/26/17 10:10 Dose: 1 mg Hydroxyzine HCl (Atarax) 25 mg PO TID [facility] Last Admin: 09/26/17 11:08 Dose: Not Given Sodium Chloride (Normal Saline) 1,000 mls @ 300 mls/hr IV ASDIRECTED [facility] Last Admin: 09/24/17 13:09 Dose: 300 mls/hr Ceftriaxone Sodium 1 gm/ (Sodium Chloride) 50 mls @ 100 mls/hr IV ONETIME ONE Stop: 09/24/17 14:08 Last Admin: 09/24/17 13:59 Dose: 100 mls/hr Clindamycin Phosphate 600 mg/ (Sodium Chloride) 54 mls @ 100 mls/hr IV Q6H [facility] Last Admin: 09/25/17 14:03 Dose: Not Given Lactated Ringer's (Ringers, Lactated) 1,000 mls @ 125 mls/hr IV ASDIRECTED [facility] Last Admin: 09/25/17 03:01 Dose: 125 mls/hr Cefazolin Sodium/Dextrose 1 gm (/ Premix) 50 mls @ 100 mls/hr IV Q12H [facility] Last Admin: 09/25/17 09:24 Dose: 100 mls/hr Sodium Chloride (Normal Saline) 500 mls @ 500 mls/hr IV .BOLUS ONE Stop: 09/25/17 08:48 Last Admin: 09/25/17 08:01 Dose: 500 mls/hr Insulin Aspart (Novolog) 14 unit SUBCUT TID [facility] Insulin Aspart (Novolog) 0 unit SUBCUT QIDACANDBED [facility] PRN Reason: Protocol Last Admin: 09/26/17 09:54 Dose: Not Given Insulin Detemir (Levemir) 15 unit SUBCUT BID [facility] Last Admin: 09/24/17 20:48 Dose: 15 units Levothyroxine Sodium (Levothyroxine) 112 mcg PO DAILY@0730 [facility] Last Admin: 09/26/17 11:08 Dose: Not Given Lorazepam (Ativan) 0.5 mg IVPUSH Q2H PRN PRN Reason: Anxiety Last Admin: 09/25/17 13:56 Dose: 0.5 mg Lorazepam (Ativan) 1 mg IVPUSH Q2H PRN PRN Reason: Anxiety Last Admin: 09/26/17 09:07 Dose: 1 mg Lorazepam (Ativan Oral Concentrate 1mg/0.5 Ml U/D) 1 mg PO Q2H PRN PRN Reason: Agitation Last Admin: 09/27/17 01:14 Dose: 1 mg Magnesium Hydroxide (Milk Of Magnesia) 30 ml PO Q12H PRN PRN Reason: Constipation Metoprolol Succinate (Toprol Xl) 25 mg PO DAILY [facility] Last Admin: 09/25/17 11:13 Dose: Not Given Morphine Sulfate (Morphine 10 Mg/0.5 Ml Oral Syringe) 20 mg SL Q1H PRN PRN Reason: Pain Last Admin: 09/27/17 01:14 Dose: 20 mg Multi-Ingred Cream/Lotion/Oil/Oint (Zinc Oxide) 0 gm TOP BID [facility] Last Admin: 09/26/17 11:30 Dose: 1 applic Verify Fentanyl (Patch) 0 each TOP BID [facility] Verify Fentanyl (Patch) 0 each TOP BID [facility] Last Admin: 09/27/17 01:17 Dose: Not Given Ondansetron HCl (Zofran) 4 mg IVPUSH ONETIME ONE Stop: 09/24/17 15:28 Last Admin: 09/24/17 15:31 Dose: 4 mg Ondansetron HCl (Zofran) 4 mg IV Q4H PRN PRN Reason: Nausea/Vomiting Oxycodone/Acetaminophen (Percocet 325-5 Mg) 1 tab PO Q4H PRN PRN Reason: Pain Last Admin: 09/25/17 12:12 Dose: 1 tab Polyethylene Glycol (Miralax) 17 gm PO DAILY [facility] Last Admin: 09/26/17 11:09 Dose: Not Given Prednisone (Prednisone) 2.5 mg PO DAILY@0800 [facility] Last Admin: 09/26/17 11:08 Dose: Not Given Ropinirole HCl (Requip) 0.5 mg PO BEDTIME [facility] Last Admin: 09/25/17 21:01 Dose: Not Given Senna/Docusate Sodium (Senna Plus) 1 tab PO DAILY [facility] Last Admin: 09/26/17 11:08 Dose: Not Given Silver Sulfadiazine (Silvadene 1% Cream 50 Gm) 5 gm TOP ONETIME ONE Stop: 09/24/17 16:17 Last Admin: 09/24/17 16:19 Dose: 1 applic Sodium Chloride (Saline Flush) 10 ml FLUSH ASDIRECTED PRN PRN Reason: Keep Vein Open Last Admin: 09/24/17 13:09 Dose: 10 ml Sodium Chloride (Saline Flush) 10 ml FLUSH ASDIRECTED PRN PRN Reason: Keep Vein Open *Q Meaningful Use (DIS) - VTE *Q VTE Criteria *Q: - Stroke *Q Stroke Criteria *Q: - AMI *Q AMI Criteria *Q:
--- NOTE | 2017-09-27 10:34 | PN ---
DATE OF SERVICE: 09/26/2017 The patient was noted on the duplex scan to have very little in the way of arterial flow with monophasic signals throughout both the lower extremities. This makes healing in these areas very unlikely. The situation was discussed at length with the patient's son yesterday. The options would be bilateral above-knee amputations versus comfort care. After further discussion with myself as well as Dr. Reaves, opting comfort care. With regard to the leg situation, continue local wound care to those areas and then continue treating the parotiditis per Dr. Reaves. Earnest Andersen MD /[phone]
== END 2017-09-27 08:18 | disposition expired | DRG 155 ==
LOC: JP.ED 12:04 → JP.MS 16:06 → UNDOADMIN 16:06 → JP.MS 16:41 → UNDODISIN 09-27 08:18
PROVIDERS: ADMIT Hospitalist; ATTEND Hospitalist
PROC: 30233N1 Transfusion of Nonautologous Red Blood Cells into Peripheral Vein, Percutaneous Approach (ICD-10-PCS; principal; 2017-09-25)
DX: K11.20 Sialoadenitis, unspecified (principal); L97.829 Non-pressure chronic ulcer of other part of left lower leg with unspecified severity; L97.819 Non-pressure chronic ulcer of other part of right lower leg with unspecified severity; I13.0 Hypertensive heart and chronic kidney disease with heart failure and stage 1 through stage 4 chronic kidney disease, or unspecified chronic kidney disease; N17.9 Acute kidney failure, unspecified; E11.52 Type 2 diabetes mellitus with diabetic peripheral angiopathy with gangrene; I96 Gangrene, not elsewhere classified; I70.238 Atherosclerosis of native arteries of right leg with ulceration of other part of lower leg; I87.2 Venous insufficiency (chronic) (peripheral); R41.82 Altered mental status, unspecified; R22.9 Localized swelling, mass and lump, unspecified; I70.248 Atherosclerosis of native arteries of left leg with ulceration of other part of lower leg; I50.9 Heart failure, unspecified; E11.40 Type 2 diabetes mellitus with diabetic neuropathy, unspecified; E11.22 Type 2 diabetes mellitus with diabetic chronic kidney disease; N18.3 Chronic kidney disease, stage 3 (moderate); Z51.5 Encounter for palliative care; Z66 Do not resuscitate; Z79.4 Long term (current) use of insulin; Z79.52 Long term (current) use of systemic steroids; Z91.040 Latex allergy status; Z88.8 Allergy status to other drugs, medicaments and biological substances
CPT/HCPCS: 36415; 70486 ×2; 80053; 81001; 82962; 83605; 85025; 87040 ×2; 87186; 93925 ×2; 96361; 96365; 96375; 99285; J0696; J1170 ×2; J2405; J7040; J7050 ×2; 36430; 80048; 83735; 86850; 86900; 86901; 86920; 86922; 99284; A9270-GY; J0690; J1650; J2060; J7120; P9016; S0077